=== PATIENT | female | born 1940 | race Caucasian/White ===

== ENCOUNTER 2016-03-28 09:22 | Inpatient (IN) | payer MEDICARE ==
[2016-03-28 09:22] VITALS: BP 100/47; PULSE 106; RESP 21; O2SAT 92
[~2016-03-28 09:22] MED LIST: ACET-171 PO; ATOR20TA PO; CHOL100043 PO; CHOL200025 PO; CRAN400C PO; DOCU-41 PO; DONE10TA42 PO; ESCI20TA38 PO; FLUT16SP NS; LACT1CAP44 PO; LISI-571 PO; LORA0.5T PO; LORA1TAB PO; LOV40 SUBQ; MAGN400O4 PO; OLAN10TA19 PO; OLAN5TAB PO; OMEP20CA11 PO; PSYL1PAC10 PO
--- NOTE | 2016-03-28 09:27 | ED.REPORT ---
HPI-General Illness Date of Service Mar 28, 2016 ED Provider: Dr. Brian Callejas M.D. A 75 year old female with an extensive medical history including Alzheimer's dementia with paranoia and delusions, asthma, renal insufficiency, pneumonia, and hyperlipidemia presents to the ED via EMS from [facility] with decreased level of consciousness onset two days ago. Her caretakers also report congestion in her lungs. At baseline, the patient is awake and swears frequently. Per EMS her BP was 133/77 with a pulse of 97 and a blood sugar of 133. Her O2 sat was 85% at [facility] and 88% en route. She was given DuoNeb treatment by EMS. The patient is DNR, comfort measures only. Nursing Notes Stated Complaint: DEC LOC Nursing Notes Reviewed: Yes Allergies: Coded Allergies: No Known Allergies (Unverified Allergy, Unknown, 01/01/15) Scheduled Atorvastatin (Lipitor) 20 Mg Tablet 20 MG PO MORNING Cholecalciferol (Vitamin D3) (Vitamin D3) 2,000 Unit Tablet 2,000 UNIT PO DAILY Cholecalciferol (Vitamin D3) (Vitamin D) 1,000 Unit Tablet 1,000 UNIT PO DAILY Cranberry (Cranberry) 400 Mg Capsule 400 MG PO DAILY Donepezil (Donepezil) 10 Mg Tablet 10 MG PO HS Enoxaparin (Lovenox) 40 Mg/0.4 Ml Syringe 40 MG SUBQ DAILY Escitalopram Oxalate (Escitalopram Oxalate) 20 Mg Tablet 20 MG PO DAILY Fluticasone Propionate (Fluticasone Propionate Nasal) 16 Gm [place].susp 2 SPRAY NS DAILY Lactobacillus Acidophilus (Acidophilus Lactobacillus) 1 Each Capsule 1 EACH PO DAILY Lisinopril (Lisinopril) 5 Mg Tablet 5 MG PO DAILY Lorazepam (Lorazepam) 1 Mg Tablet 1 MG PO BID Olanzapine (Olanzapine) 10 Mg Tablet 10 MG PO HS Olanzapine (Olanzapine) 5 Mg Tablet 5 MG PO MORNING Omeprazole (Omeprazole) 20 Mg Capsule.dr 20 MG PO MORNING Psyllium Seed (with Sugar) (Metamucil Packet) 1 Each Packet 1 EACH PO BID Scheduled PRN Acetaminophen (Acetaminophen) 500 Mg Tablet 1,000 MG PO BID PRN PRN For Pain Docusate Sodium (Colace) 100 Mg Capsule 100 MG PO BID PRN PRN For Constipation Lorazepam (Lorazepam) 0.5 Mg Tablet 0.5 MG PO HS PRN PRN For Insomnia Lorazepam (Lorazepam) 0.5 Mg Tablet 0.5 MG PO HS PRN PRN For Insomnia Lorazepam (Lorazepam) 1 Mg Tablet 1 MG PO BID PRN PRN For Anxiety Miscellaneous Medications Magnesium Hydroxide (Milk of Magnesia) 400 Mg/5 Ml Oral.susp 400 MG PO General Time Seen by MD: 09:27 Chief Complaint Altered mental status Hx Obtained From: EMS Unable to Obtain Hx: Patient condition, Mental status Arrived By: Ambulance Sudden in Onset?: No Onset Occurred: 2 days ago Symptom Duration: Since onset Associated with: Reports: Congestion Pertinent Negative: Relieved by nothing Context Related History: Reports Asthma, Reports Psychiatric history Recent Healthcare: No recent doctor visit Similar Sx Previous: Yes Past Medical History Past Medical History Alzheimer's dementia with paranoia and delusions Asthma Pneumonia Renal insufficiency GERD Arthritis Hyperlipidemia Past Surgical History None reported Smoking History Unknown if Ever Smoker Social History Other Social History: Lives in long term Review of Systems Unable to Obtain ROS Patient condition, Mental status Physical Exam Vital Signs Vital Signs Date Time Temp Pulse Resp B/P Pulse Ox O2 Delivery O2 Flow Rate FiO2 03/28/16 09:22 37.6 106 21 100/47 92 Room Air Initial VS: Reviewed Head / Eyes: Atraumatic, Normocephalic ENT: Conjunctiva normal, No scleral icterus Neck: Supple, Full range of motion Respiratory: Breath sounds normal, Clear to auscultation, No respiratory distress Cardiovascular: Regular rate & rhythm, Heart sounds normal Abdomen / GI: Soft, No distention Skin: Warm, Dry Alertness: Positive: Unresponsive Lower Extremity / Pelvis / MS: Full range of motion, No swelling, No edema Mental Status: Positive: Unresponsive Responds to deep painful stimulus by opening and closing of mouth with no eye grimacing or attempt to withdraw Some noise with deep abdominal palpation but no grimacing Interpretation & Diagnostics Lab Results Interpretation Result Diagram: 03/28/16 1113 03/28/16 1113 Test 03/28/16 09:45 03/28/16 11:13 Urine Color Dark yellow (YELLOW) Urine Appearance Turbid (CLEAR,HAZY) Urine pH 6.0 (5.0-8.0) Urine Specific Johnson 1.030 (1.003-1.035) Urine Protein 100mg/dL (NEG,TRACE) Urine Glucose (UA) Negativemg/dL (NEGATIVE) Urine Ketones Tracemg/dL (NEGATIVE) Urine Occult Blood Large (NEGATIVE) Urine Nitrite Negative (NEGATIVE) Urine Bilirubin Negative (NEGATIVE) Urine Urobilinogen Normalmg/dL (NORMAL) Urine Leukocyte Esterase Small (NEGATIVE) Urine RBC 0-2/hpf (0-2) Urine WBC 11-50/hpf (0-5) Urine Epithelial Cells Occasional/hpf (NONE-MOD) Urine Crystals None seen (NONE SEEN) Urine Bacteria Many/hpf (NONE-FEW) Urine Hyaline Casts Occasional/lpf (NONE) Urine Granular Casts Occasional (NONE SEEN) Urine Waxy Casts None seen (NONE SEEN) Urine Red Blood Cell Casts None seen (NONE SEEN) Urine White Blood Cell Casts None seen (NONE SEEN) Urine Mucus None seen (None Seen) Urine Trichomonas None seen (NONE SEEN) Urine Yeast None (NONE SEEN) Urinalysis Comment None Urine Culture Reflexed Indicated White Blood Count 18.2th/mm3 (3.8-10.1) Red Blood Count 4.57mil/mm3 (3.90-5.20) Hemoglobin 14.2g/dL (12.0-15.6) Hematocrit 44.1% (35.0-46.0) Mean Corpuscular Volume 96.5fL (81-100) Mean Corpuscular Hemoglobin 31.1pg (27.0-35.0) Mean Corpuscular Hemoglobin Concent 32.2% (32.0-37.0) Red Cell Distribution Width 13.5% (12.3-15.4) Platelet Count 216bil/L (150-400) Neutrophils (%) (Auto) 88.4% (40-74) Lymphocytes (%) (Auto) 7.4% (14-46) Monocytes (%) (Auto) 3.7% (4-12) Eosinophils (%) (Auto) 0% (0-5) Basophils (%) (Auto) 0.2% (0-3) Sodium Level 146mEq/L (134-144) Potassium Level 4.3mEq/L (3.5-5.2) Chloride Level 105mEq/L (97-108) Carbon Dioxide Level 24mmol/L (18-29) Blood Urea Nitrogen 28mg/dL (8-27) Creatinine 1.38mg/dL (0.57-1.00) Estimat Glomerular Filtration Rate 53mL/min (>59) Glucose Level 125mg/dL (60-99) Lactic Acid Level 2.2mmol/L (0.4-2.0) Calcium Level 9.6mg/dL (8.5-10.1) Magnesium Level 2.5mg/dL (1.6-2.6) Total Bilirubin 0.2mg/dL (0.0-1.2) Aspartate Amino Transf (AST/SGOT) 32U/L (0-50) Alanine Aminotransferase (ALT/SGPT) 22U/L (0-32) Alkaline Phosphatase 88U/L (25-165) Troponin T < 0.010ug/L (0.0-0.011) Total Protein 7.5g/dL (6.4-8.4) Albumin 4.1g/dL (3.4-5.0) ECG Interpretation ECG Interpretation: Sinus tachycardia rate 108 Time: 10:19 Interpreted by: ED physician Re-Eval/Medical Decision Source of Hx: Old records Time of Eval: 12:50 Re-Evaluation/Progress Note: Discussed with patient's brother Holland RANDALL) over the phone. Discussed lab results, diagnosis, and plan for admit. Patient's brother agrees with plan for care and all questions were addressed. Consultation : Referral / Consult Name: MiguelChris owens Consulted With: Hospitalist Call Returned at: 13:12 Color Checker: Agrees with eval, Agrees with plan, Accepts admit Counseled Regarding: Diagnosis, Lab results, Need for admission Discharge & Departure Primary Impression: Sepsis Sepsis type: sepsis due to unspecified organism Qualified Code: A41.9 - Sepsis, unspecified organism Additional Impression: UTI (urinary tract infection) Urinary tract infection type: acute pyelonephritis Qualified Code: N10 - Acute tubulo-interstitial nephritis Disposition: ADMITTED TO HOSPITAL Discharge Condition All VS Reviewed: Yes Condition: Stable Referrals: NOPCP (PCP) Padmajaibstew Attestation Portions of this note were transcribed by Analilia Antoine. I, Dr. Callejas, personally performed the history, physical exam, and medical decision-making; I reviewed and confirmed the accuracy of the information in the transcribed note. Signed by: Joy Ramirez, 03/28/2016, 14:39 Brian Callejas MD Mar 28, 2016 09:27 ANALILIA ANTOINE 13, 2017 09:42
[2016-03-28] MEDS ORDERED: 0.9% Sodium Chloride 1,000 ML IV ONE (09:33)
[2016-03-28 10:16] LABS: APPEARANCE,URINE TURBID (CLEAR,HAZY); COLOR,URINE DARK YELLOW (YELLOW)
[2016-03-28 10:21] LABS: OCCULT BLOOD,URINE LARGE (NEGATIVE)
[2016-03-28 10:23] LABS: UROBILINOGEN,URINE NORMAL (NORMAL)
--- NOTE | 2016-03-28 10:51 | DRSVH ---
PROCEDURE: X-RAY CHEST ONE VIEW, PORTABLE ([id number]) INDICATIONS: altered LOC TECHNIQUE: One view of the chest was acquired. COMPARISON: [facility], CR, XR CHEST 1VW, 01/01/2015, 20:45. FINDINGS: Surgical changes and devices: None. Lungs and pleura: No pleural effusions or pneumothorax. Lungs are clear. Mediastinum: Mediastinal contours appear normal. Heart size is normal. Bones and chest wall: No suspicious bony lesions. Overlying soft tissues appear unremarkable. IMPRESSION: No acute cardiopulmonary findings. Dictated by: Erin Chao M.D. on 03/28/2016 at 10:49 Approved by: Erin Chao M.D. on 03/28/2016 at 10:49
[2016-03-28] MEDS ORDERED: Piperacillin-Tazo 3.375 Gm Inj 3.375 GM in Dextrose 5% Minibag Plus 50 ML IV ONE (10:55)
[2016-03-28 11:24] LABS: BASOPHILS % (AUTO) 0.2 % (0-3); EOSINOPHILS % (AUTO) 0 % (0-5); MONOCYTES % (AUTO) 3.7 % (4-12); Mean Corpuscular Hemoglobin 31.1 pg (27.0-35.0); Mean Corpuscular Volume 96.5 fL (81-100); NEUTROPHILS % (AUTO) 88.4 % (40-74); Platelet Count 216 bil/L (150-400)
[2016-03-28 11:58] LABS: Magnesium 2.5 mg/dL (1.6-2.6); TROPONIN T < 0.010 ug/L (0.0-0.011)
[2016-03-28] MEDS ORDERED: 0.9% Sodium Chloride 1,000 ML IV SCH (13:14)
[2016-03-28] MEDS ORDERED: Ondansetron 2 mg/mL 2 mL Inj IVPUSH PRN ×2 (13:15→17:55)
[2016-03-28 14:23] VITALS: BP 150/83; PULSE 132; RESP 22
[2016-03-28] MEDS ORDERED: CALC600T12 PO (15:22)
[2016-03-28] MEDS ORDERED: MULT1CAP33 PO (15:22)
[2016-03-28] MEDS ORDERED: [UNRECOGNIZED DRUG - CODE] PO (15:22)
[2016-03-28] MEDS ORDERED: MIRT7.5T8 PO (15:22)
[2016-03-28] MEDS ORDERED: BISA10SU61 RC (15:23)
--- NOTE | 2016-03-28 15:44 | NUR ---
Admit nurse: Pt unable to provide any information, admit completed with medical record and information from facility. Pt lives at [facility]. Med rec completed with facility MAY. Pt has not had flu shot yet this season. Copy of POLST form in front of chart.
[2016-03-28] MEDS ORDERED: Influenza (Adult) Vaccine 0.5 mL Syringe IM ONE (16:10)
[2016-03-28 17:30] VITALS: BP 123/69; PULSE 122; RESP 17; O2SAT 95
[2016-03-28] MEDS ORDERED: Polyethylene Glycol (PEG) 17 Gm Powder PO PRN (17:55)
[2016-03-28] MEDS ORDERED: Alum-Mag Hydrox-Simeth 30 mL Suspension PO PRN (17:55)
[2016-03-28] MEDS: 0.9% Sodium Chloride 1,000 ML IV SCH (17:55)
--- NOTE | 2016-03-28 18:31 | PCM.HPMED ---
Subjective Date of Service Mar 28, 2016 Primary Provider: Admitting Physician: Chris Hassan Primary Care Physician: Rodrigo Attending Physician: Chris Hassan Chief Complaint: altered mental status History of Present Illness: History obtained entirely per ED report and prior electronic notes given that patient is completely non-verbal and minimally responsive at this point: 74 year old female with hx of HTN, Alzheimer's dementia, hypothyroidism, hyperlipidemia, and recurrent cystitis presents today with report of altered mental status. Per ED report patient presented "via EMS from [facility] with decreased level of consciousness onset two days ago. Her caretakers also report congestion in her lungs. At baseline, the patient is awake and swears frequently. Per EMS her BP was 133/77 with a pulse of 97 and a blood sugar of 133. Her O2 sat was 85% at [facility] and 88% en route. She was given DuoNeb treatment by EMS. The patient is DNR, comfort measures only." In the ED patient's workup has been suggestive of acute sepsis due to UTI. She received a dose of IV Zosyn Review of Systems: Unable to obtain 2ndry to patient minimally responsive and completely non- verbal at this time. Allergies Coded Allergies: No Known Allergies (Unverified Allergy, Unknown, 01/01/15) Home Medications Donepezil 10 Mg Tablet 10 Mg PO HS Ref 0 Atorvastatin 20 Mg Tablet (Lipitor) 20 Mg PO MORNING Ref 0 Lisinopril 5 Mg Tablet 5 Mg PO DAILY #30 TABLET Ref 0 Acetaminophen 500 Mg Tablet 1,000 Mg PO BID PRN Lorazepam 1 Mg Tablet 1 Mg PO BID Ref 0 Mirtazapine 7.5 Mg Tablet 7.5 Mg PO HS Ref 0 Olanzapine 5 Mg Tablet 5 Mg PO BID Ref 0 Calcium Carbonate 600 Mg Tablet 500 Mg PO TID Fluticasone Propionate 16 Gm [place].Susp 2 [place] NS DAILY #16 GM Ref 0 Bisacodyl 10 Mg Supp.Rect 10 Mg RC DAILY PRN 30 Days Ref 0 Lactobacillus Acidophilus 1 Each Capsule 1 Each PO DAILY Magnesium Hydroxide 400 Mg/5 Ml Oral.Susp 400 Mg PO Psyllium Seed (with Sugar) 1 Each Packet (Metamucil Packet) 1 Each PO BID Cholecalciferol (Vitamin D3) 2,000 Unit Tablet 2,000 Unit PO DAILY Multivitamin 1 Each Capsule 1 Each PO DAILY Cola Syrup 118 Ml Syrup 15 Ml PO BID Cranberry 400 Mg Capsule 400 Mg PO DAILY PMH Alzheimer's Dementia Anxiety Hypothyroidism (acquired) Recurrent Cystitis Hyperlipidemia Urinary incontinence Family History unable to obtain 2ndry to altered mental status Social History Hx Alcohol Use: No Hx Substance Use: No Smoking Status: Unknown if Ever Smoker Exam Vital Signs Vital Sign - Last Date Time Temp Pulse Resp B/P Pulse Ox O2 Delivery O2 Flow Rate FiO2 03/28/16 14:23 39.4 132 22 150/83 OxyMask 4.00 03/28/16 09:22 92 Exam no response to sternal rub. non-verbal. pupils seem pinpoint and fixed. no significant lymphadenopathy noted. neuro exam deferred 2ndry to altered mental status as noted Head: Normal Eyes: Scleral Anicteric Nose: Dry membranes Mouth: Mucous Membranes Dry Chest & Lungs: Chest Wall Normal, Clear to auscultation & percussion Cardiovascular: Regular Rate/Rhythm Abdomen: Non-distended, Normoactive bowel tones, Soft Extremities: No cyanosis/clubbing/edma bilat Lab and Diagnostics Result Diagram: 03/28/16 1113 03/28/16 1113 X-Rays, CTs and MRIs Date of Service: 03/28/16 09 PROCEDURE: X-RAY CHEST ONE VIEW, PORTABLE ([id number]) IMPRESSION: No acute cardiopulmonary findings. Dictated by: Erin Chao M.D. on 03/28/2016 at 10:49 Approved by: Erin Chao M.D. on 03/28/2016 at 10:49 Assessment & Plan 74 year old female with hx of HTN, Alzheimer's dementia, hypothyroidism, hyperlipidemia, and recurrent cystitis presents today with report of altered mental status. # Acute severe sepsis (fever, tachycardia, leukocytosis, altered level of consciousness, DELORES, elevated lactic acid) due to acute UTI, present on admission. ongoing. - c/w IV Zosyn started in ED - f/u pending cultures - f/u serial Lactic acid until back to normal leve - c/w IV fluid resuscitation - c/w supportive care # Acute decreased level of consciousness likely 2ndry to underlying sepsis and infection noted above - treatment as noted - if altered mental status persist despite improving labs then consider further imaging of head - for now given goals of care will not pursue any further imaging of the head as it is unlikely to change plan of care # History of Alzheimer's Dementia. advanced. - resume home meds once mental status improve and able to tolerate PO # ? History of Hypothyroidism per prior notes - thyroid medication not seen on patient's list of meds - add TSH to labs today and f/u # Hypertension. chronic. ongoing - Hold BP meds until more awake and acute sepsis resolve - for now continue with IV NS. # Goals of care - I discussed patient's case with her brother/DPOA (Holland Kameron, Tel: ). He verifies ED's report that patient is DNR/DNI and comfort care although says wants treatment of underlying infection and sepsis including serial Lactic acid and repeat labs at this time. Should patient's clinical course continue to deteriorate despite above noted treatment he wants to be notified at which time he will consider possible hospice and comfort care only protocol. Expected length of hospital stay is greater than 2 midnights. GI Prophylaxis: Proton Pump Inhibitor VTE Prophylaxis: Sub-Q Heparin (Unfractionated) Resuscitation Status: DNR/DNI:Do Not Resuscitate/Intubate Time spent 50 min Chris Hassan Mar 28, 2016 18:31
[2016-03-28] MEDS: Acetaminophen IV 1,000 MG in IV Premix 1 EACH IV PRN (19:03)
--- NOTE | 2016-03-28 19:10 | NUR ---
Arrival to Floor, Fever Patient arrived to the floor from the ED unresponsive to verbal cues. Patient occasionally will respond to touch with vocalization or movement. Patient on four liters of oxygen via oxymask. Ordered IV fluids hung. Small reddened area noted on backside, blanchable. Patient incontinent of urine. Turning Q2 hours. Patient found to be febrile upon arrival to floor. Orders for IV Tylenol received, hung. Care is ongoing.
[2016-03-28 20:36] VITALS: BP 83/43; PULSE 98; RESP 26; O2SAT 94
[2016-03-28 20:37] VITALS: BP 83/50
[2016-03-28] MEDS: Piperacillin-Tazo 3.375 Gm Inj 3.375 GM in Dextrose 5% Minibag Plus 50 ML IV SCH (20:44)
[2016-03-28 21:30] VITALS: BP 117/74; PULSE 102; RESP 24; O2SAT 92
--- NOTE | 2016-03-28 22:28 | NUR ---
BP/respirations Pt BP was 84/43, respirations were 28per min and labored. lungs coarse and congestion sounding. pt clammy and remains unresponsive to verbal stimuli, minimally responsive to touch. notified. Hospitalist came and saw pt and assessed. she ordered a vaughn cath to be placed. vaughn in place and draining to gravity. no other changes in orders at this time. upon reassessment pt BP had gone up to 117/74. will continue to monitor. Addendum: 03/28/16 at 2257 by DEENA DUMONT RN respirations have also slowed down and pt no longer appears labored. resting comfortably at this time.
[2016-03-29] VITALS (9 sets, daily range): BP systolic 80–156; BP diastolic 48–79; PULSE 80–95; RESP 18–24; O2SAT 92–99
[2016-03-29] MEDS: Heparin 5,000 Unit/mL Inj SUBQ SCH ×3 (00:43→16:52)
[2016-03-29] MEDS: 0.9% Sodium Chloride 1,000 ML IV SCH ×3 (00:50→22:10)
--- NOTE | 2016-03-29 01:12 | PCM.PNMED ---
Subjective Date of Service Mar 29, 2016 Subjective cross cover tachypnea/BP 80s/40s were self limiting purulent urine output / DNR DNI w/ limited interventions --vaughn Exam Vital Signs Vital Sign - Last Date Time Temp Pulse Resp B/P Pulse Ox O2 Delivery O2 Flow Rate FiO2 03/28/16 21:30 37.7 102 24 117/74 92 OxyMask 4.00 Intake and Output 03/28/16 03/28/16 03/29/16 Cumulative From/Thru 15:00 23:00 07:00 03/28/16 09:22 - 03/28/16 19:24 Intake Total 1200 ml 0 ml 1200 ml Balance 1200 ml 0 ml 1200 ml Intake Oral 0 ml 0 ml IV Total 1200 ml 1200 ml # Voids 2 2 Lab and Diagnostics Result Diagram: 03/28/16 1113 03/28/16 1113 X-Rays, CTs and MRIs Date of Service: 03/28/16 0933 PROCEDURE: X-RAY CHEST ONE VIEW, PORTABLE ([id number]) IMPRESSION: No acute cardiopulmonary findings. Dictated by: Erin Chao M.D. on 03/28/2016 at 10:49 Approved by: Erin Chao M.D. on 03/28/2016 at 10:49 Assessment & Plan 74 year old female with hx of HTN, Alzheimer's dementia, hypothyroidism, hyperlipidemia, and recurrent cystitis presents today with report of altered mental status. # Acute severe sepsis (fever, tachycardia, leukocytosis, altered level of consciousness, DELORES, elevated lactic acid) due to acute UTI, present on admission. ongoing. - c/w IV Zosyn started in ED - f/u pending cultures - f/u serial Lactic acid until back to normal leve - c/w IV fluid resuscitation - c/w supportive care # Acute decreased level of consciousness likely 2ndry to underlying sepsis and infection noted above - treatment as noted - if altered mental status persist despite improving labs then consider further imaging of head - for now given goals of care will not pursue any further imaging of the head as it is unlikely to change plan of care # History of Alzheimer's Dementia. advanced. - resume home meds once mental status improve and able to tolerate PO # ? History of Hypothyroidism per prior notes - thyroid medication not seen on patient's list of meds - add TSH to labs today and f/u # Hypertension. chronic. ongoing - Hold BP meds until more awake and acute sepsis resolve - for now continue with IV NS. # Goals of care - I discussed patient's case with her brother/DPOA (Holland Melo, Tel: ). He verifies ED's report that patient is DNR/DNI and comfort care although says wants treatment of underlying infection and sepsis including serial Lactic acid and repeat labs at this time. Should patient's clinical course continue to deteriorate despite above noted treatment he wants to be notified at which time he will consider possible hospice and comfort care only protocol. Expected length of hospital stay is greater than 2 midnights. GI Prophylaxis: Proton Pump Inhibitor VTE Prophylaxis: Sub-Q Heparin (Unfractionated) VTE Mechanical Devices: Intermittant Pneumatic CD Resuscitation Status: DNR/DNI:Do Not Resuscitate/Intubate Pa Marinelli MD Mar 29, 2016 01:12
[2016-03-29] MEDS: Acetaminophen IV 1,000 MG in IV Premix 1 EACH IV PRN ×2 (03:26→14:33)
--- NOTE | 2016-03-29 05:28 | NUR ---
LOC pt has been unresponsive to verbal stimuli for most of the shift, she does respond with moaning and moving her arms legs during care. However a couple of times she has appeared to wake up. eyes were open, pupils equal round and reactive to light. and when nurse said "daniel davey" she said "hello" back. she became agitated once this shift moaning and groaning and her muscles were rigid. she was given 1 mg of morphine and appeared comfortable again afterwards. she has ran a low grade fever off and on this shift and at times appeared uncomfortable and shivering. IV tylenol has effectively reduced her fever and made her more comfortable. 02 sats are currently 94% on 3L via oxy mask. will continue to monitor.
[2016-03-29 07:32] LABS: BASOPHILS % (AUTO) 0.1 % (0-3); EOSINOPHILS % (AUTO) 0 % (0-5); Mean Corpuscular Hemoglobin 30.8 pg (27.0-35.0); Mean Corpuscular Volume 96.5 fL (81-100); NEUTROPHILS % (AUTO) 80.7 % (40-74); Platelet Count 172 bil/L (150-400)
[2016-03-29 07:50] LABS: Magnesium 2.3 mg/dL (1.6-2.6)
[2016-03-29] MEDS: Pantoprazole 4 mg/mL 10 mL Inj IVPUSH SCH (09:13)
[2016-03-29] MEDS: Piperacillin-Tazo 3.375 Gm Inj 3.375 GM in Dextrose 5% Minibag Plus 50 ML IV SCH ×2 (09:13→20:59)
--- NOTE | 2016-03-29 10:45 | NUR ---
Evaluation completed. Please go to "Notes" then click on "Assessments and Notes" (bottom left corner of screen). Then select appropriate discipline tab on top of screen.
[2016-03-29] MEDS ORDERED: 0.9% Sodium Chloride 250 ML IV PRN (13:25)
[2016-03-29] MEDS ORDERED: Influenza (Adult) Vaccine 0.5 mL Syringe IM ONE (13:57)
--- NOTE | 2016-03-29 14:53 | NUR ---
Social Work: Initial Assessment D: Per EMR review, pt is a 75 year old female admitted for Sepsis, UTI. Pt is [employer]. PCP is not listed. NOK and DPOA is Holland Melo, Brother, . Advanced directives on file. Readmit score is low, 2/. BAR TURNER spoke with RN, Carlie, at [facility]. Pt is total assistance for all ADLs. Pt is wheelchair bound and uses a sheila lift for transfers. Pt has baseline dementia and uses derogatory language towards staff on a regular basis. Pt will require a bedside assessment from [facility] staff prior to acceptance back. They do not have staff available to complete this assessment over the weekend. Pt's DPOA has stated that he would like pt to be treated for her UTI however if pt does not improve of gets worse, he would like to consider comfort measures. A: Pt who is 2 person total assistance and uses a sheila for transfers. P: Anticipate pt to discharge back to [facility] pending bedside assessment; BAR TURNER to continue to follow. LALI Lan Addendum: 03/29/16 at 1503 by VIRIDIANA URIARTE Amended: Links added.
--- NOTE | 2016-03-29 17:42 | NUR ---
MENTATION/ACTIVITY Patient is responsive to voice. Mumbles. Confused. Via FELDT scale patient's pain level is 5-7. IV APAP and IV Morphine administered, which was helpful. No emesis noted. She continues to be on O2 at 2-3 LPM via an oxymask. SBP's have been in the 120-130's most of this shift. Turned and repositioned Q 2 hrs. Sutter alarm is on. *Verified with her DPOA-Holland: Patient will have the flu vac administered today.
--- NOTE | 2016-03-29 19:13 | PCM.PNMED ---
Subjective Date of Service Mar 29, 2016 Subjective SBP 120s, and turning by herself w/ RN assist today Exam Vital Signs Vital Sign - Last Date Time Temp Pulse Resp B/P Pulse Ox O2 Delivery O2 Flow Rate FiO2 03/29/16 16:29 87 123/76 03/29/16 14:45 37.2 20 OxyMask 3.00 03/29/16 09:09 92 Intake and Output 03/28/16 03/28/16 03/29/16 Cumulative From/Thru 15:00 23:00 07:00 03/28/16 09:22 - 03/29/16 06:06 Intake Total 1200 ml 0 ml 1695 ml 2895 ml Output Total 200 ml 200 ml Balance 1200 ml 0 ml 1495 ml 2695 ml Intake Oral 0 ml 0 ml 0 ml IV Total 1200 ml 1695 ml 2895 ml Output Urine Total 200 ml 200 ml # Voids 2 2 Exam oximask NAD asleep loose cough wheeze right, CTAleft soft nt nd + BS trace block edema vaughn clear yellow urine IVF 100/hr + BM today Lab and Diagnostics Result Diagram: 03/29/16 0653 03/29/16 0653 X-Rays, CTs and MRIs Date of Service: 03/28/16 0933 PROCEDURE: X-RAY CHEST ONE VIEW, PORTABLE ([id number]) IMPRESSION: No acute cardiopulmonary findings. Dictated by: Erin Chao M.D. on 03/28/2016 at 10:49 Approved by: Erin Chao M.D. on 03/28/2016 at 10:49 Assessment & Plan 74 year old female with hx of HTN, Alzheimer's dementia, hypothyroidism, hyperlipidemia, treated as sepsis due to recurrent cystitis presented with somnolence. Finally BP stabilizing and turning for RN today 03/29/2016. # IMPROVING Acute severe sepsis (fever, tachycardia, leukocytosis, altered level of consciousness, DELORES, elevated lactic acid) due to acute gram neg rods purulent UTI, present on admission. --resolving leukocytosis - c/w IV Zosyn started in ED - f/u pending cultures - c/w IV fluid resuscitation # IMPROVING Acute decreased level of consciousness likely 2ndry to underlying sepsis, improving - oximask, npo, decrease IVF 50cc/hr IMPROVING DELORES --monitor Cr and UOP --vaughn had been placed # History of Alzheimer's Dementia. advanced. - resume home meds once mental status improve and able to tolerate PO # ? History of Hypothyroidism per prior notes - thyroid medication not seen on patient's list of meds - add TSH to labs today and f/u # Hypertension. chronic. ongoing - Hold BP meds until more awake and acute sepsis resolve # Goals of care - admitting hospitalist spoke w/ brother/DPOA (Holland Melo, ) . He verfied DNR/DNI/comfort care but wanted treatment of underlying infection. Should patient's clinical course deteriorate, he wants to be notified at which time he will consider possible hospice and comfort care only protocol. Expected length of hospital stay is greater than 2 midnights. GI Prophylaxis: Proton Pump Inhibitor VTE Prophylaxis: Sub-Q Heparin (Unfractionated) VTE Mechanical Devices: Intermittant Pneumatic CD Resuscitation Status: DNR/DNI:Do Not Resuscitate/Intubate Pa Marinelli MD Mar 29, 2016 19:13
[2016-03-29] MEDS: Albuterol-Ipratropium 3 mL Inhalation Solution NEB SCH (20:24)
[2016-03-30] MEDS: Heparin 5,000 Unit/mL Inj SUBQ SCH ×3 (00:08→17:20)
--- NOTE | 2016-03-30 05:09 | NUR ---
mentation pt has been responding to voice. sometimes she answers questions appropriately but mostly she is confused, or mumbling. duoneb was administered last night which seemed to help clear pt's congestion for a short time. she is still on 3L of 02. q2 turns being done but pt also moves herself around in bed frequently. VSS and afebrile. care continues.
[2016-03-30 05:15] VITALS: BP 133/82; PULSE 91; RESP 16; O2SAT 97
[2016-03-30 07:55] LABS: Mean Corpuscular Hemoglobin 31.3 pg (27.0-35.0); Mean Corpuscular Volume 95.7 fL (81-100)
[2016-03-30] MEDS: Pantoprazole 4 mg/mL 10 mL Inj IVPUSH SCH (07:59)
[2016-03-30 08:01] VITALS: BP 155/84; PULSE 89; RESP 18; O2SAT 94
[2016-03-30] MEDS: Piperacillin-Tazo 3.375 Gm Inj 3.375 GM in Dextrose 5% Minibag Plus 50 ML IV SCH (08:01)
[2016-03-30] MEDS: Albuterol-Ipratropium 3 mL Inhalation Solution NEB SCH ×2 (08:53→20:03)
[2016-03-30 08:56] VITALS: PULSE 85; RESP 14; O2SAT 94
--- NOTE | 2016-03-30 09:09 | PCM.PNMED ---
Subjective Date of Service Mar 30, 2016 Subjective Patient currently is in bed and is being cleaned up by nurse. Nurse notes that patient is more alert today. She did have swallow evaluation done yesterday and failed. Hence she is still on nothing by mouth status. Exam Vital Signs Vital Sign - Last Date Time Temp Pulse Resp B/P Pulse Ox O2 Delivery O2 Flow Rate FiO2 03/30/16 08:01 36.0 89 18 155/84 94 Room Air 03/30/16 05:15 3.00 Intake and Output 03/29/16 03/29/16 03/30/16 Cumulative From/Thru 15:00 23:00 07:00 03/28/16 09:22 - 03/29/16 17:48 Intake Total 1136 ml 4031 ml Output Total 450 ml 650 ml Balance 686 ml 3381 ml Intake Oral 0 ml 0 ml IV Total 1136 ml 4031 ml Output Urine Total 450 ml 650 ml # Voids 2 Exam Head: Normocephalic atraumatic Chest: Clear to auscultation with some scant rhonchi auscultated in the upper airways Cor: Regular rate and rhythm S1-S2 Abdomen: Soft nontender bowel sounds present Extremities: No pedal edema Neuro: Patient is awake and alert and oriented 0 does not really follow commands. But does verbalize IVs and Medications Medications Reviewed: Medications were reviewed in detail Lab and Diagnostics Laboratory Tests 72 Hours Test 03/28/16 09:45 03/28/16 11:13 03/28/16 18:20 03/28/16 20:20 Urine Color Dark yellow (YELLOW) Urine Appearance Turbid (CLEAR,HAZY) Urine pH 6.0 (5.0-8.0) Urine Specific [place] 1.030 (1.003-1.035) Urine Protein 100mg/dL (NEG,TRACE) Urine Glucose (UA) Negativemg/dL (NEGATIVE) Urine Ketones Tracemg/dL (NEGATIVE) Urine Occult Blood Large (NEGATIVE) Urine Nitrite Negative (NEGATIVE) Urine Bilirubin Negative (NEGATIVE) Urine Urobilinogen Normalmg/dL (NORMAL) Urine Leukocyte Esterase Small (NEGATIVE) Urine RBC 0-2/hpf (0-2) Urine WBC 11-50/hpf (0-5) Urine Epithelial Cells Occasional/hpf (NONE-MOD) Urine Crystals None seen (NONE SEEN) Urine Bacteria Many/hpf (NONE-FEW) Urine Hyaline Casts Occasional/lpf (NONE) Urine Granular Casts Occasional (NONE SEEN) Urine Waxy Casts None seen (NONE SEEN) Urine Red Blood Cell Casts None seen (NONE SEEN) Urine White Blood Cell Casts None seen (NONE SEEN) Urine Mucus None seen (None Seen) Urine Trichomonas None seen (NONE SEEN) Urine Yeast None (NONE SEEN) Urinalysis Comment None Urine Culture Reflexed Indicated White Blood Count 18.2th/mm3 (3.8-10.1) Red Blood Count 4.57mil/mm3 (3.90-5.20) Hemoglobin 14.2g/dL (12.0-15.6) Hematocrit 44.1% (35.0-46.0) Mean Corpuscular Volume 96.5fL (81-100) Mean Corpuscular Hemoglobin 31.1pg (27.0-35.0) Mean Corpuscular Hemoglobin Concent 32.2% (32.0-37.0) Red Cell Distribution Width 13.5% (12.3-15.4) Platelet Count 216bil/L (150-400) Neutrophils (%) (Auto) 88.4% (40-74) Lymphocytes (%) (Auto) 7.4% (14-46) Monocytes (%) (Auto) 3.7% (4-12) Eosinophils (%) (Auto) 0% (0-5) Basophils (%) (Auto) 0.2% (0-3) Sodium Level 146mEq/L (134-144) Potassium Level 4.3mEq/L (3.5-5.2) Chloride Level 105mEq/L (97-108) Carbon Dioxide Level 24mmol/L (18-29) Blood Urea Nitrogen 28mg/dL (8-27) Creatinine 1.38mg/dL (0.57-1.00) Estimat Glomerular Filtration Rate 53mL/min (>59) Glucose Level 125mg/dL (60-99) Lactic Acid Level 2.2mmol/L (0.4-2.0) 0.9mmol/L (0.4-2.0) 1.0mmol/L (0.4-2.0) Calcium Level 9.6mg/dL (8.5-10.1) Magnesium Level 2.5mg/dL (1.6-2.6) Total Bilirubin 0.2mg/dL (0.0-1.2) Aspartate Amino Transf (AST/SGOT) 32U/L (0-50) Alanine Aminotransferase (ALT/SGPT) 22U/L (0-32) Alkaline Phosphatase 88U/L (25-165) Troponin T < 0.010ug/L (0.0-0.011) Total Protein 7.5g/dL (6.4-8.4) Albumin 4.1g/dL (3.4-5.0) Test 03/28/16 22:45 03/29/16 06:53 03/30/16 07:05 Lactic Acid Level 1.1mmol/L (0.4-2.0) White Blood Count 14.6th/mm3 (3.8-10.1) 6.8th/mm3 (3.8-10.1) Red Blood Count 3.73mil/mm3 (3.90-5.20) 3.96mil/mm3 (3.90-5.20) Hemoglobin 11.5g/dL (12.0-15.6) 12.4g/dL (12.0-15.6) Hematocrit 36.0% (35.0-46.0) 37.9% (35.0-46.0) Mean Corpuscular Volume 96.5fL (81-100) 95.7fL (81-100) Mean Corpuscular Hemoglobin 30.8pg (27.0-35.0) 31.3pg (27.0-35.0) Mean Corpuscular Hemoglobin Concent 31.9% (32.0-37.0) 32.7% (32.0-37.0) Red Cell Distribution Width 13.5% (12.3-15.4) 13.2% (12.3-15.4) Platelet Count 172bil/L (150-400) 179bil/L (150-400) Neutrophils (%) (Auto) 80.7% (40-74) Lymphocytes (%) (Auto) 12.9% (14-46) Monocytes (%) (Auto) 6.0% (4-12) Eosinophils (%) (Auto) 0% (0-5) Basophils (%) (Auto) 0.1% (0-3) Sodium Level 145mEq/L (134-144) 143mEq/L (134-144) Potassium Level 4.1mEq/L (3.5-5.2) 4.0mEq/L (3.5-5.2) Chloride Level 111mEq/L (97-108) 110mEq/L (97-108) Carbon Dioxide Level 21mmol/L (18-29) 22mmol/L (18-29) Blood Urea Nitrogen 27mg/dL (8-27) 17mg/dL (8-27) Creatinine 1.29mg/dL (0.57-1.00) 0.90mg/dL (0.57-1.00) Estimat Glomerular Filtration Rate 58mL/min (>59) 87mL/min (>59) Glucose Level 110mg/dL (60-99) 85mg/dL (60-99) Calcium Level 8.4mg/dL (8.5-10.1) 8.5mg/dL (8.5-10.1) Magnesium Level 2.3mg/dL (1.6-2.6) Albumin 2.7g/dL (3.4-5.0) Prealbumin 15mg/dL (20-40) Result Diagram: 03/30/1670403/30/16704 Microbiology RUN DATE: 03/30/16 [facility] LIVE PAGE 1 RUN TIME: 735 Specimen Inquiry PHYSICIAN Name: ABHAY SCHWARZ Age/Sex: 75/F Attend Dr: Chris Hassan Acct: [id number] Unit: [id number] Status: ADM IN [place] [facility] [place]1 Re03/28/16 Disch: Specimen: [id number] Collected: 03/28/16 Status: OLMAN Larkin#: [id number] Received: 03/28/16 Source: URINE CC Sp Desc : ALEKSEY Lipscomb Dr: Brian Callejas MD Ordered: URINE CULT Procedure Result Verified Site Microbiology CRICKET CULT URINE Final 03/30/16 Organism 1 PROTEUS MIRABILIS U COLONY COUNT/QUANTITY >100,000 CFU/ml Organism 2 MIXED UROGENITAL JAVI U COLONY COUNT/QUANTITY >100,000 CFU/ml Mixed urogenital javi also PROTEUS MIRABILIS Cefazolin-predicts results for the oral agents, cefaclor,cefdinir, cefpodoximen, cefprozil, cefuroximne axetil, cephalexin and loracarbed when used for therapy of uncomplicated UTI's due to E. coli, K. pneumoniae, and Proteus mirabilis. Cefpodoxime, cefdinir and cefuroxime axetil may be tested individually because some isolates may be susceptible to these agents while testing resistant to cefazolin. (CLSI N281-J32 pg 53) 1. PROTEUS MIRABILIS M.I.C Interp --------- ------ * AMPICILLIN I * CEFAZOLIN (CEPHALOSPORIN) UTI 4 S * CEFEPIME <=1 S * CEFTRIAXONE <=1 S * CEFUROXIME SODIUM <=1 S * CIPROFLOXACIN <=0.25 S * ERTAPENEM <=0.5 S * GENTAMICIN <=1 S * LEVOFLOXACIN <=0.12 S * NITROFURANTOIN 128 R * TETRACYCLINE >=16 R * TOBRAMYCIN <=1 S * TRIMETHOPRIM/SULFAMETHOXAZOLE <=20 S X-Rays, CTs and MRIs Date of Service: 03/28/16 0933 PROCEDURE: X-RAY CHEST ONE VIEW, PORTABLE ([id number]) IMPRESSION: No acute cardiopulmonary findings. Dictated by: Erin Chao M.D. on 03/28/2016 at 10:49 Approved by: Erin Chao M.D. on 03/28/2016 at 10:49 Assessment & Plan 74 year old female with hx of HTN, Alzheimer's dementia, hypothyroidism, hyperlipidemia, treated as sepsis due to recurrent cystitis presented with somnolence. Finally BP stabilizing and turning for RN today 03/29/2016. # IMPROVING Acute severe sepsis (fever, tachycardia, leukocytosis, altered level of consciousness, DELORES, elevated lactic acid) due to acute gram neg rods purulent UTI, present on admission. --resolving leukocytosis - c/w IV Zosyn started in ED - f/u pending cultures - c/w IV fluid resuscitation Urine cultures are back growing a Proteus mirabilis which is not sensitive to ampicillin but is sensitive to Rocephin. Hence we will switch to Rocephin IV and DC Zosyn # IMPROVING Acute decreased level of consciousness likely 2ndry to underlying sepsis, improving - oximask, npo, decrease IVF 50cc/hr -Patient more alert today per RN -Not requiring supplemental O2 at this time # IMPROVING DELORES --monitor Cr and UOP --vaughn had been placed -Kidney function is doing better today, continue to monitor -Continue with IV fluids # History of Alzheimer's Dementia. advanced. - resume home meds once mental status improve and able to tolerate PO # ? History of Hypothyroidism per prior notes - thyroid medication not seen on patient's list of meds - add TSH to labs today and f/u -Thyroid labs are pending still today # Hypertension. chronic. ongoing - Hold BP meds until more awake and acute sepsis resolve # Goals of care - admitting hospitalist spoke w/ brother/DPOA (Holland Melo, ) . He verfied DNR/DNI/comfort care but wanted treatment of underlying infection. Should patient's clinical course deteriorate, he wants to be notified at which time he will consider possible hospice and comfort care only protocol. Expected length of hospital stay is greater than 2 midnights. GI Prophylaxis: Proton Pump Inhibitor VTE Prophylaxis: Sub-Q Heparin (Unfractionated) VTE Mechanical Devices: Intermittant Pneumatic CD Resuscitation Status: DNR/DNI:Do Not Resuscitate/Intubate Time spent 30 minutes Ramya Carr MD Mar 30, 2016 09:09
--- NOTE | 2016-03-30 09:10 | NUR ---
DOUG Signed Verbal Consent from ELIOT
[2016-03-30] MEDS: cefTRIAXone Inj 2,000 MG in IV Premix 1 EACH IV SCH (14:37)
[2016-03-30] MEDS ORDERED: Acetaminophen IV 1,000 MG in IV Premix 1 EACH IV PRN (14:50)
[2016-03-30 14:52] VITALS: BP 137/74; PULSE 95; RESP 18; O2SAT 93
[2016-03-30] MEDS: Dextrose 5% 0.45% NaCl 1,000 ML IV SCH (18:30)
[2016-03-30 20:05] VITALS: PULSE 78; RESP 18; O2SAT 85
[2016-03-30 20:50] VITALS: BP 106/69; PULSE 112; RESP 20; O2SAT 96
--- NOTE | 2016-03-30 22:55 | NUR ---
HR/ paged. This evening patients heart rate has been fluctuating from 80's to high 140's. Pt is not on tele. Night hospitalist notified and states no new orders at this time. Patient is on 3 L O2 via oxy mask to maintain O2 Sats >92%. HOMICIDE SQUAD CAPTAIN has been applied to monitor both oxygen levels, and Heart rate. Will continue to monitor, and continue Q2 turns. Addendum: 03/31/16 at 0422 by KINSEY SNOW RN As the evening has progressed, Pts heart rate appears to be maintaining in the 80's. Will continue to monitor.
[2016-03-31] VITALS (8 sets, daily range): BP systolic 108–158; BP diastolic 77–91; PULSE 83–97; RESP 16–22; O2SAT 97–99
[2016-03-31] MEDS: Heparin 5,000 Unit/mL Inj SUBQ SCH ×3 (00:27→16:59)
[2016-03-31] MEDS: Pantoprazole 4 mg/mL 10 mL Inj IVPUSH SCH (07:25)
[2016-03-31] MEDS: Dextrose 5% 0.45% NaCl 1,000 ML IV SCH (08:32)
[2016-03-31] MEDS: cefTRIAXone Inj 2,000 MG in IV Premix 1 EACH IV SCH (08:32)
[2016-03-31] MEDS: Albuterol-Ipratropium 3 mL Inhalation Solution NEB SCH ×2 (08:42→21:40)
[2016-03-31 09:08] LABS: Free Thyroxine Index 1.7 (1.2-4.9); Thyroxine (T4) 5.7 ug/dL (4.5-12.0)
--- NOTE | 2016-03-31 10:25 | NUR ---
03/31/16 Wound Care [facility] Patient assessed for pressure ulcer protocol. No areas of pressure identified. Patient with blanchable redness to nose and chin from O2 mask. Applied duoderm to prevent further pressure. Nsg to monitor and change duoderm as needed. Red rash noted to perineum. Nursing present during assessment and notified. Applied calmoseptine to red rash. Nursing to monitor redness and request nystatin if no improvement with calmoseptine. Heels floated, however patient very restless and mobile in bed. Likely will not be able to keep heels floated due to constant mobility in bed. Wound care to follow up if needed.
--- NOTE | 2016-03-31 10:40 | NUR ---
Palliative Care Palliative Care received verbal order from Dr Murdock 03/31/16 to assist with goals of care. Patient is a 75 year old woman with hx of HTN, Alzheimer's dementia, hypothyroidism and hyperlipidemia. She was admitted 03/28/16 for care off UTI and sepsis. Holland Melo (brother) [phone] Palliative Care to follow. Daisy Cesar
--- NOTE | 2016-03-31 11:29 | NUR ---
Phone call from pt's brother Pt's brother, Real, called this a.m. asking about pt's condition. Told him pt's dementia was obvious and that most of her speech was incoherent. Also told him that pt has nasal congestion, but her lungs are mostly clear. During rounds this a.m., palliative care suggested meeting with pt's family, as pt has not had any food for 3 days (failed swallow evaluation). Hospitalist and palliative care to see pt. Care continues.
--- NOTE | 2016-03-31 11:37 | PCM.PNMED ---
Subjective Date of Service Mar 31, 2016 Subjective Patient with eyes open, confused at baseline, noted failed a swallow evaluation - out of care to discuss goals of care including nutritional options with family. Appreciate assistance Exam Vital Signs Vital Sign - Last Date Time Temp Pulse Resp B/P Pulse Ox O2 Delivery O2 Flow Rate FiO2 03/31/16 10:34 Supplement Oxygen 03/31/16 10:30 89 98 3.00 03/31/16 08:44 18 03/31/16 05:40 36.8 130/77 Intake and Output 03/30/16 03/30/16 03/31/16 Cumulative From/Thru 15:00 23:00 07:00 03/28/16 09:22 - 03/31/16 06:37 Intake Total 823 ml 617 ml 894 ml 6365 ml Output Total 700 ml 850 ml 200 ml 2400 ml Balance 123 ml -233 ml 694 ml 3965 ml Intake Oral 0 ml 0 ml 0 ml 0 ml IV Total 823 ml 617 ml 894 ml 6365 ml Output Urine Total 700 ml 850 ml 200 ml 2400 ml # Voids 2 # Bowel Movements 0 0 0 Exam Head: Normocephalic atraumatic Chest: Clear to auscultation with some scant rhonchi auscultated in the upper airways Cor: Regular rate and rhythm S1-S2 Abdomen: Soft nontender bowel sounds present Extremities: No pedal edema Neuro: Patient is awake and alert and oriented 0 does not really follow commands. But does verbalize IVs and Medications Medications Reviewed: Medications were reviewed in detail Lab and Diagnostics Result Diagram: 03/30/1670403/30/16704 Microbiology RUN DATE: 03/30/16 [facility] LAB LIVE PAGE 1 RUN TIME: 735 Specimen Inquiry PHYSICIAN Name: ABHAY SCHWARZ Age/Sex: 75/F Attend Dr: Chris Hassan Acct: [id number] Unit: [id number] Status: ADM IN Location: [facility] [place] 1030-1 Re03/28/16 Disch: Specimen: [id number] Collected: 03/28/16 Status: COMP Req#: [id number] Received: 03/28/16 Source: URINE CC Sp Desc : ALEKSEY Lipscomb Dr: Brian Callejas MD Ordered: URINE CULT Procedure Result Verified Site Microbiology CRICKET CULT URINE Final 03/30/16-735 Organism 1 PROTEUS MIRABILIS U COLONY COUNT/QUANTITY >100,000 CFU/ml Organism 2 MIXED UROGENITAL JAVI U COLONY COUNT/QUANTITY >100,000 CFU/ml Mixed urogenital javi also PROTEUS MIRABILIS Cefazolin-predicts results for the oral agents, cefaclor,cefdinir, cefpodoximen, cefprozil, cefuroximne axetil, cephalexin and loracarbed when used for therapy of uncomplicated UTI's due to E. coli, K. pneumoniae, and Proteus mirabilis. Cefpodoxime, cefdinir and cefuroxime axetil may be tested individually because some isolates may be susceptible to these agents while testing resistant to cefazolin. (CLSI S014-S03 pg 53) 1. PROTEUS MIRABILIS M.I.C Interp --------- ------ * AMPICILLIN I * CEFAZOLIN (CEPHALOSPORIN) UTI 4 S * CEFEPIME <=1 S * CEFTRIAXONE <=1 S * CEFUROXIME SODIUM <=1 S * CIPROFLOXACIN <=0.25 S * ERTAPENEM <=0.5 S * GENTAMICIN <=1 S * LEVOFLOXACIN <=0.12 S * NITROFURANTOIN 128 R * TETRACYCLINE >=16 R * TOBRAMYCIN <=1 S * TRIMETHOPRIM/SULFAMETHOXAZOLE <=20 S X-Rays, CTs and MRIs Date of Service: 03/28/16 0933 PROCEDURE: X-RAY CHEST ONE VIEW, PORTABLE ([id number]) IMPRESSION: No acute cardiopulmonary findings. Dictated by: Erin Chao M.D. on 03/28/2016 at 10:49 Approved by: Erin Chao M.D. on 03/28/2016 at 10:49 Assessment & Plan 74 year old female with hx of HTN, Alzheimer's dementia, hypothyroidism, hyperlipidemia, treated as sepsis due to recurrent cystitis presented with somnolence. Finally BP stabilizing and turning for RN today 03/29/2016. # IMPROVING Acute severe sepsis (fever, tachycardia, leukocytosis, altered level of consciousness, DELORES, elevated lactic acid) due to acute gram neg rods purulent UTI, present on admission. -- Resolved leukocytosis - Zosyn started in ED, switched to ceftriaxone -Proteus on urine culture - Post fluid resuscitation, decreased D5NS to 50 mL per hour - As above Urine cultures are back growing a Proteus mirabilis which is not sensitive to ampicillin but is sensitive to Rocephin. # IMPROVING Acute decreased level of consciousness likely 2ndry to underlying sepsis, improving - oximask, npo, decrease IVF 50cc/hr -Necessitating supplemental oxygen # IMPROVING DELORES --monitor Cr and UOP --vaughn had been placed -Kidney function is doing better today, continue to monitor, labs pending for today reordered for 3 more days -Continue with IV fluids # History of Alzheimer's Dementia. advanced. - resume home meds once mental status improve and able to tolerate PO # ? History of Hypothyroidism per prior notes - thyroid medication not seen on patient's list of meds - T4 to T 3 okay -Thyroid labs are pending still today # Hypertension. chronic. ongoing - Hold BP meds until more awake and acute sepsis resolve # Goals of care - admitting hospitalist spoke w/ brother/DPOA (Holland Kameron, ) . He verfied DNR/DNI/comfort care but wanted treatment of underlying infection. Should patient's clinical course deteriorate, he wants to be notified at which time he will consider possible hospice and comfort care only protocol. Palliative care to initiate service/conversation for goals of care on March 31 Expected length of hospital stay is greater than 2 midnights. Pain Evaluation: Adequate Pain Control GI Prophylaxis: Proton Pump Inhibitor VTE Prophylaxis: Sub-Q Heparin (Unfractionated) VTE Mechanical Devices: Intermittant Pneumatic CD Resuscitation Status: DNR/DNI:Do Not Resuscitate/Intubate Time spent 30 minutes spent with evaluation and management, including coronation care. Greater than 50% was spent [id number] Emil Murdock DO Mar 31, 2016 11:36
[2016-03-31 11:57] LABS: BASOPHILS % (AUTO) 0.2 % (0-3); EOSINOPHILS % (AUTO) 0.2 % (0-5); Mean Corpuscular Hemoglobin 30.3 pg (27.0-35.0); Mean Corpuscular Volume 92.6 fL (81-100); NEUTROPHILS % (AUTO) 63.5 % (40-74); Platelet Count 175 bil/L (150-400)
--- NOTE | 2016-03-31 12:56 | NUR ---
Behavior / skin care Pt frequently calls out; speech is most unintelligible. Pt was able to tell me her name this a.m. when asked. Pt cooperates with care but frequently raises her voice when moved. Pt allows staff to turn her from side to side, but quickly moves back to a supine position with her knees bent. Skin check this a.m. showed no redness to problem on her back or buttocks. Pt does have red rash in her perineal area; applied Calmoseptine ointment. Case catheter in place and draining terry urine. Care continues.
--- NOTE | 2016-03-31 15:56 | NUR ---
NUTRITION ASSESSMENT: ASSESS: 75 YO female admitted for sepsis, UTI and altered mental status. Pt has been NPO x 3 days. Palliative care following to help with goal of care regarding nutrition as pt has failed her ST eval. Pt remains confused per notes and has Alzheimer's dementia. PMHx: HTN, Alzheimer's dementia, hyperlipidemia. LABS: Reviewed. K+ 3.2, Glu 130, Ca 8.2, Alb 2.7, PAB 15. MEDS: Reviewed. GI: No BM reported at this time. SKIN: No PU per wound care note. CURRENT WT: 60.8 kg. Wt (01/01/2015): 72.6 kg. Significant wt loss of 16.3% since Dec 2014. Ht: 5 feet, 6 inches per previous admit. DIET: NPO x 3 days. EST. NEEDS: 1603-8922 kcals (30-35 kcals/kg BW), 75-90 g protein (1.2-1.5 g/kg BW) NUTRITION DIAGNOSIS: 1.) Inadequate oral intake related to decreased ability to consume sufficient energy as evidenced by current NPO x 3 day status and significant wt loss of 16.3%. NUTRITION INTERVENTION: 1.) Will continue to await plan of care decisions. MONITOR / EVAL: NPO status, POC, labs, nutritional status. Follow per high nutritional risk guidelines.
--- NOTE | 2016-03-31 16:31 | NUR ---
SW continued Discharge Planning: SW spoke to [facility] rep Christine who states that patient accepted back upon discharge. [facility] rep states that another bedside eval to take place upon discharge. Palliative care following for goals of care. [facility] rep states that pending further clinical eval, possible hospice referral to be initiated prior to arrival if needed and if family in agreement. SW to follow with palliative care and clinical course. Per report in rounds, patient failed swallow. SW to follow. PLAN: Return back to [facility] with possible hospice, pending clinical course Mihir ESCALERA
--- NOTE | 2016-03-31 17:51 | PCM.PALLBR ---
Palliative Care Recommendation 75 yr old woman with known advanced dementia, now admitted again with UTI/ AMS. She is not oriented, with word-salad verbiage. She is somewhat more awake with the antibiotic treatments. She does cry out at times and has a significantly pained expression/grimace despite answering 'no' to questions about discomfort. Summary of palliative recommendations: -Symptom management (Pain/other) Pain/Comfort: Dementia is likely interfering with the patient's ability to report pain/discomfort. Will continue to assess. AMS: Advanced dementia, not oriented at this time, though nurse reports she did state her name earlier. --Stage 7C + FAST scale -DPOA/Advanced Directives/POLST: --DNR/DNI per brother. Will meet with brother tomorrow to discuss issues regarding future care, possible hospice and POLST -Family/emotional support --FCTM scheduled for 10:45am on 04/01/16 -Spiritual support Patient Goals: 1.To be determined during meetings with family in days to come Additional Medical Diagnoses with primary management by Hospitalist team include : Problems: Resuscitation Status Resuscitation Status: DNR/DNI:Do Not Resuscitate/Intubate Total time 15 minutes; >50% face to face with patient and/or family, providing counselling regarding plans and recommendations, and in care coordination with his/her medical teams. Palliative Brief Note Date of Service Mar 31, 2016 . Patient seen and examined in room with resident Dr. Cervantes. She has verbal responses but these for the most part are incomprehensible. She has a very distressed look on her face, like fear more that pain. She states no to having pain, or to being bothered by anything but I get the sense that this response is rote and not ambulatory services representative of the truth due to her profound confusion. TC with brother Holland, who is grateful for the involvement of palliative care. His questions are answered about the care she is receiving and how she is doing today. He is unable to come to the hospital today but will plan to meet with PC in the morning at 10:45 am. Deena Velazco Mar 31, 2016 17:51
[2016-04-01] VITALS (7 sets, daily range): BP systolic 132–164; BP diastolic 81–88; PULSE 73–91; RESP 16–18; O2SAT 94–98
[2016-04-01] MEDS: Heparin 5,000 Unit/mL Inj SUBQ SCH ×2 (00:21→08:36)
[2016-04-01] MEDS: Dextrose 5% 0.45% NaCl 1,000 ML IV SCH (02:41)
--- NOTE | 2016-04-01 03:59 | NUR ---
Mentation/Time of assessment Patients assessment was performed at 2014. Patients did not make eye contact. Made mumbles sounds except she said in regards to a warm blanket" that feels wonderful" She did not answer any questions except that when asked if she was in pain, she said "no". Patient was turned q2 hours. No pain medication was administered. o2 sats 97% on oxymask 2l.
--- NOTE | 2016-04-01 05:35 | NUR ---
Cough Patient has coughed throughout shift. The cough sounds productive but the patient does not exhibit the ability to cough sputum up.
[2016-04-01 06:19] LABS: BASOPHILS % (AUTO) 0.5 % (0-3); EOSINOPHILS % (AUTO) 0.9 % (0-5); MONOCYTES % (AUTO) 10.6 % (4-12); Mean Corpuscular Hemoglobin 31.1 pg (27.0-35.0); NEUTROPHILS % (AUTO) 50.3 % (40-74); Platelet Count 184 bil/L (150-400)
[2016-04-01] MEDS: Pantoprazole 4 mg/mL 10 mL Inj IVPUSH SCH (07:32)
[2016-04-01] MEDS: Albuterol-Ipratropium 3 mL Inhalation Solution NEB SCH ×3 (08:11→20:30)
[2016-04-01] MEDS ORDERED: cefTRIAXone Inj 2,000 MG in Dextrose 5% Minibag Plus 50 ML IV SCH (08:30)
--- NOTE | 2016-04-01 10:01 | NUR ---
Influenza swab Nasal swab for influenza testing obtained at 1000 hrs and sent to lab. Pt tolerated swab with no complaint. Care continues. Addendum: 04/01/16 at 1139 by KENNY WARE RN Microbiology notified me at 1130 hrs that pt's swab was positive for influenza A. Hospitalist notified of test results. Isolation measures initiated for droplet and contact precautions.
--- NOTE | 2016-04-01 12:39 | NUR ---
Social Work Continued Discharge Planning: Palliative Care consulted with patient and family today and family in agreement to hospice plans. Patient was active with hospice services in past and family aware of hospice expectations. Patient currently a resident of [facility]. MIRANDA contacted [facility], and spoke to [facility] and advised them of recent positive influenza swab. Rep from [facility] to contact SW back regarding acceptance back status after discussion with clinical director. Palliative care to contact hospice for possible opening time. SW to follow. PLAN: Possible return back to [facility], pending director approval due to recent positive influenza swab. Hospice [facility] to be consulted for possible opening time. SW to follow. Mihir ESCALERA Addendum: 04/01/16 at 1617 by MIKKI URIARTE ADDENDUM: MIRANDA spoke to [facility], who states that patient set up for opening at [facility] tomorrow at 10am. MIRANDA spoke to [facility] Christine who states that patient accepted back under hospice care. Patient to be placed in private room due to recent positive flu. Christine at [facility] available to arrange transport tomorrow morning to ensure hospice meeting at 10am. consulted today to enter discharge orders for tomorrow early am discharge. Family updated. Mihir ESCALERA
[2016-04-01] MEDS ORDERED: Potassium Chloride Inj 30 MEQ in Dextrose 5% 500 ML IV ONE (14:30)
[2016-04-01] MEDS ORDERED: Albuterol 2.5 mg/3 mL Inhalation Solution NEB PRN (14:35)
--- NOTE | 2016-04-01 14:40 | PCM.PNMED ---
Subjective Date of Service Apr 01, 2016 Subjective Patient with increasing secretions and cough patient is weak enough that she cannot bring it up hence flu screen was checked and it was positive for influenza A today. Exam Vital Signs Vital Sign - Last Date Time Temp Pulse Resp B/P Pulse Ox O2 Delivery O2 Flow Rate FiO2 04/01/16 13:31 36.3 77 132/81 97 OxyMask 1.00 04/01/16 08:14 18 Intake and Output 03/31/16 03/31/16 04/01/16 Cumulative From/Thru 15:00 23:00 07:00 03/28/16 09:22 - 04/01/16 06:06 Intake Total 737 ml 649 ml 7751 ml Output Total 975 ml 900 ml 4275 ml Balance -238 ml -251 ml 3476 ml Intake Oral 0 ml 0 ml 0 ml IV Total 737 ml 649 ml 7751 ml Output Urine Total 975 ml 900 ml 4275 ml # Voids 2 # Bowel Movements 0 0 Exam Constitutional: Very frail appearing female who is very lethargic Head: Normocephalic atraumatic Chest: Diffuse rhonchi Cor: Regular rate and rhythm S1-S2 Abdomen soft nontender bowel sounds present Extremity: No pedal edema Neuro: She is lethargic but does arouse to voice and painful stimuli. Moves all extremities equally. Lab and Diagnostics Result Diagram: 04/01/1655404/01/16554 Microbiology RUN DATE: 03/30/[address] [facility] LAB LIVE PAGE 1 RUN TIME: 0736 Specimen Inquiry PHYSICIAN Name: ABHAY SCHWARZ Age/Sex: 75/F Attend Dr: Chris Hassan Acct: [id number] Unit: [id number] Status: ADM IN Location: [facility] [place] 1030-1 Re03/28/16 Disch: Specimen: [id number] Collected: 03/28/16 Status: OLMAN Req#: [id number] Received: 03/28/16 Source: URINE CC Sp Desc : PP Subm Dr: Brian Callejas MD Ordered: URINE CULT Procedure Result Verified Site Microbiology CRICKET CULT URINE Final 03/30/16 Organism 1 PROTEUS MIRABILIS U COLONY COUNT/QUANTITY >100,000 CFU/ml Organism 2 MIXED UROGENITAL JAVI U COLONY COUNT/QUANTITY >100,000 CFU/ml Mixed urogenital javi also PROTEUS MIRABILIS Cefazolin-predicts results for the oral agents, cefaclor,cefdinir, cefpodoximen, cefprozil, cefuroximne axetil, cephalexin and loracarbed when used for therapy of uncomplicated UTI's due to E. coli, K. pneumoniae, and Proteus mirabilis. Cefpodoxime, cefdinir and cefuroxime axetil may be tested individually because some isolates may be susceptible to these agents while testing resistant to cefazolin. (CLSI [id number] pg 53) 1. PROTEUS MIRABILIS M.I.C Interp --------- ------ * AMPICILLIN I * CEFAZOLIN (CEPHALOSPORIN) UTI 4 S * CEFEPIME <=1 S * CEFTRIAXONE <=1 S * CEFUROXIME SODIUM <=1 S * CIPROFLOXACIN <=0.25 S * ERTAPENEM <=0.5 S * GENTAMICIN <=1 S * LEVOFLOXACIN <=0.12 S * NITROFURANTOIN 128 R * TETRACYCLINE >=16 R * TOBRAMYCIN <=1 S * TRIMETHOPRIM/SULFAMETHOXAZOLE <=20 S X-Rays, CTs and MRIs Date of Service: 03/28/16 0933 PROCEDURE: X-RAY CHEST ONE VIEW, PORTABLE ([id number]) IMPRESSION: No acute cardiopulmonary findings. Dictated by: Erin Chao M.D. on 03/28/2016 at 10:49 Approved by: Erin Chao M.D. on 03/28/2016 at 10:49 Assessment & Plan 74 year old female with hx of HTN, Alzheimer's dementia, hypothyroidism, hyperlipidemia, treated as sepsis due to recurrent cystitis presented with somnolence. Finally BP stabilizing and turning for RN today 03/29/2016. # IMPROVING Acute severe sepsis (fever, tachycardia, leukocytosis, altered level of consciousness, DELORES, elevated lactic acid) due to acute gram neg rods purulent UTI, present on admission. -- Resolved leukocytosis - Zosyn started in ED, switched to ceftriaxone -Proteus on urine culture - Post fluid resuscitation, decreased D5NS to 50 mL per hour - As above Urine cultures are back growing a Proteus mirabilis which is not sensitive to ampicillin but is sensitive to Rocephin. # IMPROVING Acute decreased level of consciousness likely 2ndry to underlying sepsis, improving - oximask, npo, decrease IVF 50cc/hr -Necessitating supplemental oxygen # IMPROVING DELORES --monitor Cr and UOP --vaughn had been placed -Kidney function is doing better today, continue to monitor, labs pending for today reordered for 3 more days -Continue with IV fluids # Increasing cough and secretions, acute, worsening since admission Flu screen is positive for influenza A placed on droplet precautions I did order Tamiflu but doubt patient will be able to safely take anything oral Check portable chest x-ray to see if pneumonic infiltrates are present # History of Alzheimer's Dementia. advanced. - resume home meds once mental status improve and able to tolerate PO # ? History of Hypothyroidism per prior notes - thyroid medication not seen on patient's list of meds - T4 to T 3 okay -Thyroid labs are pending still today # Hypertension. chronic. ongoing - Hold BP meds until more awake and acute sepsis resolve # Goals of care - admitting hospitalist spoke w/ brother/DPOA (Holland Melo, ) . He verfied DNR/DNI/comfort care but wanted treatment of underlying infection. Should patient's clinical course deteriorate, he wants to be notified at which time he will consider possible hospice and comfort care only protocol. Palliative care to initiate service/conversation for goals of care on March 31. Expected length of hospital stay is greater than 2 midnights. GI Prophylaxis: Proton Pump Inhibitor VTE Prophylaxis: Sub-Q Heparin (Unfractionated) VTE Mechanical Devices: Intermittant Pneumatic CD Resuscitation Status: DNR/DNI:Do Not Resuscitate/Intubate Time spent 30 minutes Ramya Carr MD Apr 01, 2016 14:40
--- NOTE | 2016-04-01 14:53 | NUR ---
Palliative care note D/A: Case discussed in OPC rounds. Discussed possible need for stat flu test and pt has been found to be positive for the flu virus. Please note that pt brother Holland Melo can be reached on his phone at [phone]. (This worker having trouble getting this number to work this afternoon, although number has been used recently.) Holland spouse cell number is [phone]. This worker was able to contact Holland on his spouse's cell phone. Pt is from [facility]. Family is familiar with hospice from having had such services for other family members in the past. Pt has not used Hospice in the past. Discussed with Urvashi at [facility]. As this worker was not yet able to to discuss with johanna Holland- arranged for W info visit for 04/02/16 at 1000 in case johanna would like info visit. (He had indicated previously that he was not sure he needed one.) Mikaela ESCALERA dcp will contact [facility] to discuss when they might be able to accept pt back in light of positive flu virus. When this worker is able to reach Holland, possibility of info visit is offered and he accepts. He will meet [facility] rep (Peggy) outside of pt room at 1000 on 04/02/16. He also tells this worker that his family is friends with Juliette Andrade MD who has also provided details in regards to [facility] care. Case discussed with Deena PEARL as to timing of dc. She will discuss further with Dr. Carr. Have left message for Urvashi at [facility] as to when agency might be able to open pt. (During call on another pt this morning, next opening at that time was 04/04/16 at 1100.) Awaiting word from [facility] as to date/time of open. P: Palliative to follow. Pt able to return to [facility] on 04/02/16. [facility] to provide info visit on 04/02/16 at 1000. Awaiting recommendation from medical/palliative team as to if pt can dc with [facility] to open a few days later. Paola Min [facility] Addendum: 04/01/16 at 1550 by VIANEY MIN PC note amendment D/A: Phone call from hal Ogden who indicates that [facility] can take back pt on 04/02/16 and are aware of flu. This worker calls [facility] who has now had a cancellation and is able to open pt on 04/02/16 at 1000. Asked Urvashi to call Mikaela ESCALERA to discuss further. Discussed with Mikaela who will reach out to hospitalist . This worker sends text to Deena PEARL alerting her to this potential plan. Discussed with Urvashi from [facility] in regards to planned info visit for pt johanna on 04/02/16 at 1000. Decided to discuss with bro and indicate above plan and that he/spouse can meet pt at 1000 at [facility] and interact with [facility] while they open pt for services at 1000. Msg left for bro on spouse phone and later talk to him on his cell phone as is working at this time. Awaiting word back from medical/palliative providers as to dc plan for 04/02/16. P: Palliative care to follow. Paola Min [facility]
--- NOTE | 2016-04-01 15:02 | PCM.CONPAL ---
Date of Service Apr 01, 2016 Date of Hospital Admission: Mar 28, 2016 at 13:27 Date of Palliative Consult: Apr 01, 2016 Requesting Provider: Emil Murdock DO Reason Palliative Care Consult: Goals of Care Discussion, Hospice Referral & Discussion Reason for Consultation Goals of Care planning with DPOA Hospital Unit @time of consult: Orthopedic/Surgical Care Palliative Care Recommendation 75 yr old woman with known advanced dementia, now admitted again with UTI/ AMS and influenza. She is not oriented, with word-salad verbiage. She is somewhat more awake with the antibiotic treatments. She does cry out at times and has a significantly pained expression/grimace despite answering 'no' to questions about discomfort, though nurse reports she did state her name earlier. Summary of palliative recommendations: -Symptom management (Pain/other) Pain/Comfort: Dementia is likely interfering with the patient's ability to report pain/discomfort. Patient will be transitioned to comfort care measures and will likely be placed on low dose scheduled liquid morphine however Palliative team will continue to assess. AMS: Advanced dementia, not oriented at this time, though nurse reports she did state her name earlier. --Stage 7C on FAST scale with recent loss of ambulation and PT signing off given lack of ability to follow commands - Patient will likely remain on some low dose antipsychotics including Olanzapine, however palliative plan to simplify patient's medications with emphasis on comfort care once discussed with medical team. -DPOA/Advanced Directives/POLST: --DNR/DNI per brother. Family Care Team meeting on 04/01/2016 described in detail in conference section -Family Care Team Meeting held on 04/01/2016 at 10:45 - Family - Brother/DPOA Holland Melo and sister in law Villar - Palliative team - Deena PEARL and Steve Leung DO FAmily Conference: The discussion was started with obtaining the family's understanding of Augustina's current state of health. The brother Holland described the progression of Augustina's dementia stating that it started at around 65yo however there were tell-tell signs that she may have struggled with the onset of dementia prior. She purchased a house which she could not afford in [place] after living in an apartment without issue. At approximately 68yo Augustina was convinced to move into a facility [facility] that could better care for her the where she resided for 3- 4 years before the facility said her dementia had progressed to where she was difficult to handle with issues with hostility and agitation. At that point in time the patient was moved to [facility] where she has resided for the last 3 years. Holland described Augustina's baseline health as being in relative decline since she broke her left hip in December 2014. He states that she was able to regain the ability to walk and was ambulatory up to a few months ago however the hip fracture really started a precipitous decline in her dementia. At baseline just several weeks ago Augustina was oriented to person but less so daily. Holland goes on to state that growing up as children "Augustina hated my guts." She went on to say that during the process of naming Holland her DPOA, she stated that through her dementia she was "getting revenge" against Holland. Holland states that he feels a sense of responsibility to take care of Augustina and he stated that he has help Augustina since she showed up after their parent's both in [place] approximately 20 years ago. 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 Holland stated that his father had to bail Augustina out of financial issues after her divorce. Augustina was also a fairly introverted individual prior to her onset of dementia, and only had 1-2 friends during her years in [place] prior to her dementia. Holland also reports that Augustina had some underlying issues with fearfulness and paranoia that he noticed prior to her onset of dementia. He mentions that she was always worried that somebody was breaking into her home specifically. Holland reiterated that during their DPOA paperwork Augustina had mentioned that she wanted no heroic measures taken to keep her alive. At this point the Palliative team asked Holland and Aurea to fill out a new POLST for Augustina. Holland agreed that Augustina would be DNR/DNI and given her current stage of dementia that she would want to be comfort care only. When the topic of tube feeding was brought up Holland stated that he believes Augustina would describe that as a heroic measure and therefor no feeding tubes were selected, however he believes given that she is comfort care she should be allowed to eat even though it carries a risk of aspiration. Lastly Holland stated that she would not want any antibiotics that would prolong her life given its current state of quality. Lastly the topic of Hospice was brought up. Holland and Aurea were both familiar with Hospice from Aurea's mother being cared for 10 years prior. Neither felt that they needed an information visit but both agreed that if Augustina were accepted as a candidate they would like Hospice following along. -Spiritual support - not discussed at this time Patient Goals: 1. Comfort care measures Additional Medical Diagnoses with primary management by Hospitalist team include : End stage dementia UTI Influenza Problems: End of Life Preferences Comfort Care order set DNR/DNI No antibiotics No tube feedings but OK to recreationally feed orally if patient wants even given risk of aspiration Goals of Care 1. Comfort care measures Disposition Likely to be discharged back to [facility] with hospice following. [facility] is [facility] her back tomorrow however hospice will not be able to follow until likely later in the week. Resuscitation Status Resuscitation Status: DNR/DNI:Do Not Resuscitate/Intubate POLST Updates/Changes Previous POLST?: No POLST Last Review Date: Apr 01, 2016 Antibiotics: No Antibiotics Artificially Admin Nutrition: No Artifical Nutrition by Tube, Additional Orders (OK to feed recreationally even with risk of aspiration) POLST Discussed with: Health Care Agent (DPOAHC) POLST Review Outcome: New Form Completed . Advanced Care Planning Address: POLST, Comfort care Pain: Mild Symptom management: Anxiety, Agitation, Delirium Pt History History of Present Illness from the H&P of Chris Hassan MD "History obtained entirely per ED report and prior electronic notes given that patient is completely non-verbal and minimally responsive at this point: 74 year old female with hx of HTN, Alzheimer's dementia, hypothyroidism, hyperlipidemia, and recurrent cystitis presents today with report of altered mental status. Per ED report patient presented "via EMS from [facility] with decreased level of consciousness onset two days ago. Her caretakers also report congestion in her lungs. At baseline, the patient is awake and swears frequently. Per EMS her BP was 133/77 with a pulse of 97 and a blood sugar of 133. Her O2 sat was 85% at [facility] and 88% en route. She was given DuoNeb treatment by EMS. The patient is DNR, comfort measures only." In the ED patient's workup has been suggestive of acute sepsis due to UTI. She received a dose of IV Zosyn" Palliative Care : 75 yr old woman with known advanced dementia, now admitted again with UTI/ AMS and now confirmed positive Influenza. She is not oriented, with word-salad verbiage. She is somewhat more awake with the antibiotic treatments. She does cry out at times and has a significantly pained expression/ grimace despite answering 'no' to questions about discomfort. Patient seen and examined in room with resident Dr. Leung. She has verbal responses but these for the most part are incomprehensible. She has a very distressed look on her face, like fear more that pain. She states no to having pain, or to being bothered by anything but I get the sense that this response is rote and not telemarketing sales representative of the truth due to her profound confusion. TC with brother Holland/ELIOT, who is grateful for the involvement of palliative care. His questions are answered about the care she is receiving and how she is doing at this time. He is able to come to the hospital to meet with PC today at 10:45 am. Past Medical History Significant PMH Noted: Alzheimer's Dementia Anxiety Hypothyroidism (acquired) Recurrent Cystitis Hyperlipidemia Urinary incontinence Left hip fracture in December 2014 Social History Occupation: retired physical plant employee Social Support: Brother Holland Melo is the DPOA Living Situation: At [facility] ADLs ADL Patient Status: Current ADL Ambulation: Mainly Bed ADL Dressing: Total care ADL Feeding: Total care ADL Hygene/bathing: Total care ADL Transfers: Total care Allergy Allergies Reviewed: Yes Medications Current Medications: Current Medications Ceftriaxone Sodium/Dextrose 2000 mg/Premix 50 ml @ 100 mls/hr Q24 IV Last administered on 03/31/16 08:32; Admin Dose 100 MLS/HR; Start 03/30/16 at 14:00 ; Stop 03/31/16 at 14:47; Status DC Acetaminophen 1000 mg/Premix 100 ml @ 400 mls/hr Q6H PRN IV Last administered on 03/30/16 17:40; Admin Dose 400 MLS/HR; Start 03/30/16 at 14:50; Stop at 14:51; Status DC Dextrose/Sodium Chloride 1,000 ml @ 50 mls/hr Q20H IV Last administered on 04/01 02:41; Admin Dose 50 MLS/HR; Start 03/30/16 at 18:25 Ceftriaxone Sodium/Dextrose/ Water 50 ml @ 100 mls/hr Q24 IV Last administered on 04/01/16 08:35; Admin Dose 100 MLS/HR; Start 04/01/16 at 08:30 Scheduled Fluticasone Propionate (Fluticasone Propionate Nasal) 16 Gm [place].susp 2 SPRAY NS DAILY Lorazepam (Lorazepam) 1 Mg Tablet 1 MG PO BID Mirtazapine (Mirtazapine) 7.5 Mg Tablet 7.5 MG PO HS Olanzapine (Olanzapine) 5 Mg Tablet 5 MG PO BID Scheduled PRN Acetaminophen (Acetaminophen) 500 Mg Tablet 1,000 MG PO BID PRN PRN For Pain Bisacodyl (Dulcolax Rectal) 10 Mg Supp.rect 10 MG RC DAILY PRN PRN For Constipation Morphine Sulfate Oral Concentrate (Roxanol Oral Concentrate) 100 Mg/5 Ml (20 Mg/ Ml) Solution 5-10 MG SL/PO Q4H PRN PRN For Moderate Pain Miscellaneous Medications Magnesium Hydroxide (Milk of Magnesia) 400 Mg/5 Ml Oral.susp 400 MG PO Objective Findings Exam Vital Sign - Last Date Time Temp Pulse Resp B/P Pulse Ox O2 Delivery O2 Flow Rate FiO2 04/01/16 10:05 78 95 OxyMask 1.00 04/01/16 08:14 18 04/01/16 05:28 36.4 155/88 Intake and Output 03/31/16 03/31/16 04/01/16 Cumulative From/Thru 15:00 23:00 07:00 03/28/16 09:22 - 04/01/16 06:06 Intake Total 737 ml 649 ml 7751 ml Output Total 975 ml 900 ml 4275 ml Balance -238 ml -251 ml 3476 ml Intake Oral 0 ml 0 ml 0 ml IV Total 737 ml 649 ml 7751 ml Output Urine Total 975 ml 900 ml 4275 ml # Voids 2 # Bowel Movements 0 0 Objective 75yoF with PMH remarkable for advanced dementia lying quietly in bed until brief outbursts of word salad, in no acute distress otherwise General: Alert, Anxious, Agitated, Other (Not alert to self, place or time) HEENT: Atraumatic, PERRLA, Scleral Anicteric, Mucous Membr Moist/[place] Heart: Exam Unremarkable, Regular Rate/Rhythm, Normal S1, S2, No Murmurs/Rubs/ Gallops Lungs: Clear to Auscultation Abdomen: Benign, Bowel Tones x4, Soft, Non Tender Neuro: Arousable, Spontaneous Eye Opening, Speech (word salad, comprehensible words are brief 3-4 at a time) Extremities: Pulses Palpable x4, Warm Lab/Diagnostics Lab and Imaging results reviewed in detail in EMR. Time spent Total time 80 minutes; >50% face to face with patient and/or family, providing counselling regarding plans and recommendations, and in care coordination with his/her medical teams. I also spent an additional 45 minutes counseling for advanced care planning with the patient/the patients family/the surrogate decision maker. Attending Statement The patient was seen and examined together with Dr. Steve Leung on April 01, 2016 and I agree with the history, exam and plan as outlined in the note above. Deena Velazco Apr 01, 2016 10:32 STEVE LEUNG DO Apr 01, 2016 15:02 I also spent an additional 45 minutes counseling for advanced care planning with the patient/the patients family/the surrogate decision maker. Deena Velazco Apr 01, 2016 10:32 STEVE LEUNG DO Apr 01, 2016 15:02 Total time 80 minutes; >50% face to face with patient and/or family, providing counselling regarding plans and recommendations, and in care coordination with his/her medical teams. I also spent an additional 45 minutes counseling for advanced care planning with the patient/the patients family/the surrogate decision maker. Deena Velazco Apr 01, 2016 10:32 STEVE LEUNG DO Apr 01, 2016 15:02
[2016-04-01] MEDS ORDERED: Haloperidol 5 mg/mL Inj IVPUSH PRN (15:25)
[2016-04-01] MEDS ORDERED: OLANZapine Zydis ODT 5 mg Tablet PO SCH (15:25)
[2016-04-01] MEDS ORDERED: Atropine 1% 5 mL Ophthalmic Solution PO PRN (15:25)
--- NOTE | 2016-04-01 15:56 | PCM.DIMED ---
Discharge Instructions Date of Service Apr 01, 2016 Dates of Hospitalization Mar 28, 2016 at 13:27 Discharge Diagnosis Discharge Diagnosis Influenza A, sepsis secondary to urinary tract infection with acute kidney failure Diet No restrictions, Other (aspiration risk) Activity Other (as tolerated) Call your provider Other (hospice care) Ramya Carr MD Apr 01, 2016 15:56
[2016-04-01] MEDS ORDERED: MORP100S5 SL/PO (15:59)
--- NOTE | 2016-04-01 17:00 | NUR ---
Comfort care Pt now on comfort care. Palliative care following pt now. New orders acknowledged. Continuing frequent oral care, and repositioning for pt comfort.
[2016-04-01] MEDS: Morphine 20 mg/mL Oral Syringe SL/PO PRN (17:15)
[2016-04-01] MEDS: OLANZapine Zydis ODT 5 mg Tablet PO SCH (21:00)
[2016-04-01] MEDS ORDERED: Albuterol-Ipratropium 3 mL Inhalation Solution NEB PRN (21:32)
--- NOTE | 2016-04-02 04:39 | NUR ---
comfort care per report pallative care has asked nurses to use the PAINAD scale to rate patients pain. on the PAINAD scale pt has scored a 0 for pain all night long. her breathing does sound congested but she has been breathing even and unlabored all night. she opens her eyes during care but makes no sounds of distress and does not become rigid or attempt to pull away. she has appeared to be resting comfortably tho she does not respond to verbal cues or answer questions. turning and oral care has been done for comfort. care continues.
[2016-04-02] MEDS ORDERED: MIRT7.5T8 PO (07:10)
[2016-04-02] MEDS ORDERED: OLAN5TAB PO (07:10)
[2016-04-02] MEDS ORDERED: LORA1TAB PO (07:10)
[2016-04-02] MEDS ORDERED: ACET-171 PO (07:10)
[2016-04-02] MEDS ORDERED: BISA10SU61 RC (07:10)
--- NOTE | 2016-04-02 07:14 | PCM.DC.MED ---
Discharge Summary Date of Service Apr 02, 2016 Dates of Hospitalization Date of Hospital Admission Mar 28, 2016 at 13:27 Date of Discharge: Apr 02, 2016 Providers: Admitting Physician: Chris Hassan Primary Care Physician: Rodrigo Attending Physician: Chris Hassan Diagnosis at Time of Discharge Diagnosis at Time of Discharge Influenza A, sepsis secondary to urinary tract infection with acute kidney failure Consultations Palliative care Procedures XRay, CTs & MRIs Date of Service: 03/28/16 0933 PROCEDURE: X-RAY CHEST ONE VIEW, PORTABLE ([id number]) IMPRESSION: No acute cardiopulmonary findings. Dictated by: Erin Chao M.D. on 03/28/2016 at 10:49 Approved by: Erin Chao M.D. on 03/28/2016 at 10:49 Brief History from the H&P of Chris Hassan MD "History obtained entirely per ED report and prior electronic notes given that patient is completely non-verbal and minimally responsive at this point: 74 year old female with hx of HTN, Alzheimer's dementia, hypothyroidism, hyperlipidemia, and recurrent cystitis presents today with report of altered mental status. Per ED report patient presented "via EMS from [facility] with decreased level of consciousness onset two days ago. Her caretakers also report congestion in her lungs. At baseline, the patient is awake and swears frequently. Per EMS her BP was 133/77 with a pulse of 97 and a blood sugar of 133. Her O2 sat [facility] 85% at [facility] and 88% en route. She was given DuoNeb treatment by EMS. The patient is DNR, comfort measures only." In the ED patient's workup has been suggestive of acute sepsis due to UTI. She received a dose of IV Zosyn" Palliative Care : 75 yr old woman with known advanced dementia, now admitted again with UTI/ AMS and now confirmed positive Influenza. She is not oriented, with word-salad verbiage. She is somewhat more awake with the antibiotic treatments. She does cry out at times and has a significantly pained expression/ grimace despite answering 'no' to questions about discomfort. Patient seen and examined in room with resident Dr. Cervantes. She has verbal responses but these for the most part are incomprehensible. She has a very distressed look on her face, like fear more that pain. She states no to having pain, or to being bothered by anything but I get the sense that this response is rote and not investment representative of the truth due to her profound confusion. TC with brother Holland/ORENHERMILA, who is grateful for the involvement of palliative care. His questions are answered about the care she is receiving and how she is doing at this time. He is able to come to the hospital to meet with PC today at 10:45 am. Hospital Course 74 year old female with hx of HTN, Alzheimer's dementia, hypothyroidism, hyperlipidemia, treated as sepsis due to recurrent cystitis presented with somnolence. Finally BP stabilizing and turning for RN today 03/29/2016. # IMPROVING Acute severe sepsis (fever, tachycardia, leukocytosis, altered level of consciousness, DELORES, elevated lactic acid) due to acute gram neg rods purulent UTI, present on admission. -- Resolved leukocytosis - Zosyn started in ED, switched to ceftriaxone -Proteus on urine culture - Post fluid resuscitation, decreased D5NS to 50 mL per hour - As above Urine cultures are back growing a Proteus mirabilis which is not sensitive to ampicillin but is sensitive to Rocephin. # IMPROVING Acute decreased level of consciousness likely 2ndry to underlying sepsis, improving - oximask, npo, decrease IVF 50cc/hr -Necessitating supplemental oxygen # IMPROVING DELORES --monitor Cr and UOP --vaughn had been placed -Kidney function is doing better today, continue to monitor, labs pending for today reordered for 3 more days -Continue with IV fluids # Increasing cough and secretions, acute, worsening since admission Flu screen is positive for influenza A placed on droplet precautions I did order Tamiflu but doubt patient will be able to safely take anything oral Check portable chest x-ray to see if pneumonic infiltrates are present # History of Alzheimer's Dementia. advanced. - resume home meds once mental status improve and able to tolerate PO # ? History of Hypothyroidism per prior notes - thyroid medication not seen on patient's list of meds - T4 to T 3 okay -Thyroid labs are pending still today # Hypertension. chronic. ongoing - Hold BP meds until more awake and acute sepsis resolve # Goals of care - admitting hospitalist spoke w/ brother/DPHERMILA (Holland Melo, ) . He verfied DNR/DNI/comfort care but wanted treatment of underlying infection. Should patient's clinical course deteriorate, he wants to be notified at which time he will consider possible hospice and comfort care only protocol. Palliative care to initiate service/conversation for goals of care on March 31. Patient was seen by palliative care and recommendations were made for comfort care/palliative care only and patient will be [facility] to [facility] with hosp[facility] care. Expected length of hospital stay is greater than 2 midnights. Exam Vital Signs (Last) Date Time Temp Pulse Resp B/P Pulse Ox O2 Delivery O2 Flow Rate FiO2 04/01/16 21:45 36.9 90 16 164/88 98 Room Air 04/01/16 13:31 1.00 Test 03/28/16 09:45 03/28/16 11:13 03/28/16 22:45 03/29/16 06:53 Urine Color Dark yellow (YELLOW) Urine Appearance Turbid (CLEAR,HAZY) Urine pH 6.0 (5.0-8.0) Urine Specific [place] 1.030 (1.003-1.035) Urine Protein 100mg/dL (NEG,TRACE) Urine Glucose (UA) Negativemg/dL (NEGATIVE) Urine Ketones Tracemg/dL (NEGATIVE) Urine Occult Blood Large (NEGATIVE) Urine Nitrite Negative (NEGATIVE) Urine Bilirubin Negative (NEGATIVE) Urine Urobilinogen Normalmg/dL (NORMAL) Urine Leukocyte Esterase Small (NEGATIVE) Urine RBC 0-2/hpf (0-2) Urine WBC 11-50/hpf (0-5) Urine Epithelial Cells Occasional/hpf (NONE-MOD) Urine Crystals None seen (NONE SEEN) Urine Bacteria Many/hpf (NONE-FEW) Urine Hyaline Casts Occasional/lpf (NONE) Urine Granular Casts Occasional (NONE SEEN) Urine Waxy Casts None seen (NONE SEEN) Urine Red Blood Cell Casts None seen (NONE SEEN) Urine White Blood Cell Casts None seen (NONE SEEN) Urine Mucus None seen (None Seen) Urine Trichomonas None seen (NONE SEEN) Urine Yeast None (NONE SEEN) Urinalysis Comment None Urine Culture Reflexed Indicated Total Bilirubin 0.2mg/dL (0.0-1.2) Aspartate Amino Transf (AST/SGOT) 32U/L (0-50) Alanine Aminotransferase (ALT/SGPT) 22U/L (0-32) Alkaline Phosphatase 88U/L (25-165) Troponin T < 0.010ug/L (0.0-0.011) Total Protein 7.5g/dL (6.4-8.4) Lactic Acid Level 1.1mmol/L (0.4-2.0) Magnesium Level 2.3mg/dL (1.6-2.6) Albumin 2.7g/dL (3.4-5.0) Test 03/30/16 07:05 04/01/16 05:55 Free Thyroxine Index 1.7 (1.2-4.9) Thyroxine (T4) 5.7ug/dL (4.5-12.0) Triiodothyronine (T3) Uptake 30% (24-39) White Blood Count 5.7th/mm3 (3.8-10.1) Red Blood Count 4.11mil/mm3 (3.90-5.20) Hemoglobin 12.8g/dL (12.0-15.6) Hematocrit 37.4% (35.0-46.0) Mean Corpuscular Volume 91.0fL (81-100) Mean Corpuscular Hemoglobin 31.1pg (27.0-35.0) Mean Corpuscular Hemoglobin Concent 34.2% (32.0-37.0) Red Cell Distribution Width 12.4% (12.3-15.4) Platelet Count 184bil/L (150-400) Neutrophils (%) (Auto) 50.3% (40-74) Lymphocytes (%) (Auto) 37.3% (14-46) Monocytes (%) (Auto) 10.6% (4-12) Eosinophils (%) (Auto) 0.9% (0-5) Basophils (%) (Auto) 0.5% (0-3) Sodium Level 140mEq/L (134-144) Potassium Level 3.1mEq/L (3.5-5.2) Chloride Level 101mEq/L (97-108) Carbon Dioxide Level 25mmol/L (18-29) Blood Urea Nitrogen 8mg/dL (8-27) Creatinine 0.71mg/dL (0.57-1.00) Estimat Glomerular Filtration Rate 115mL/min (>59) Glucose Level 124mg/dL (60-99) Calcium Level 8.6mg/dL (8.5-10.1) Prealbumin 18mg/dL (20-40) Microbiology Results RUN DATE: 03/30/16 [facility] LIVE PAGE 1 RUN TIME: 735 Specimen Inquiry PHYSICIAN Name: CHONGABHAY A Age/Sex: 75/F Attend Dr: Chris Hassan Acct: [id number] Unit: [id number] Status: ADM IN [place] [facility] [place] 1030-1 Re03/28/16 Disch: Specimen: [id number] Collected: 03/28/16 Status: COMP Req#: [id number] Received: 03/28/16 Source: URINE CC Sp Desc : ALEKSEY Lipscomb Dr: Brian Callejas MD Ordered: URINE CULT Procedure Result Verified Site Microbiology CRICKET CULT URINE Final 03/30/16-735 Organism 1 PROTEUS MIRABILIS U COLONY COUNT/QUANTITY >100,000 CFU/ml Organism 2 MIXED UROGENITAL JAVI U COLONY COUNT/QUANTITY >100,000 CFU/ml Mixed urogenital javi also PROTEUS MIRABILIS Cefazolin-predicts results for the oral agents, cefaclor,cefdinir, cefpodoximen, cefprozil, cefuroximne axetil, cephalexin and loracarbed when used for therapy of uncomplicated UTI's due to E. coli, K. pneumoniae, and Proteus mirabilis. Cefpodoxime, cefdinir and cefuroxime axetil may be tested individually because some isolates may be susceptible to these agents while testing resistant to cefazolin. (CLSI O183-D77 pg 53) 1. PROTEUS MIRABILIS M.I.C Interp --------- ------ * AMPICILLIN I * CEFAZOLIN (CEPHALOSPORIN) UTI 4 S * CEFEPIME <=1 S * CEFTRIAXONE <=1 S * CEFUROXIME SODIUM <=1 S * CIPROFLOXACIN <=0.25 S * ERTAPENEM <=0.5 S * GENTAMICIN <=1 S * LEVOFLOXACIN <=0.12 S * NITROFURANTOIN 128 R * TETRACYCLINE >=16 R * TOBRAMYCIN <=1 S * TRIMETHOPRIM/SULFAMETHOXAZOLE <=20 S Discharge Medications Discharge Medications Fluticasone Propionate (Fluticasone Propionate Nasal) 16 Gm [place].susp 2 SPRAY NS DAILY (Reported) Lorazepam (Lorazepam) 1 Mg Tablet 1 MG PO BID Prescribed by: RAMYA CARR MD Mirtazapine (Mirtazapine) 7.5 Mg Tablet 7.5 MG PO HS Prescribed by: RAMYA CARR MD Olanzapine (Olanzapine) 5 Mg Tablet 5 MG PO BID Prescribed by: RAMYA CARR MD As needed Acetaminophen (Acetaminophen) 500 Mg Tablet 1,000 MG PO BID PRN PRN For Pain Prescribed by: RAMYA CARR MD Bisacodyl (Dulcolax Rectal) 10 Mg Supp.rect 10 MG RC DAILY PRN PRN For Constipation Prescribed by: RAMYA CARR MD Morphine Sulfate Oral Concentrate (Roxanol Oral Concentrate) 100 Mg/5 Ml (20 Mg/ Ml) Solution 5-10 MG SL/PO Q4H PRN PRN For Moderate Pain Prescribed by: RAMYA CARR MD Miscellaneous Medications Magnesium Hydroxide (Milk of Magnesia) 400 Mg/5 Ml Oral.susp 400 MG PO (Reported ) Followup Plan Discharge Diet: No restrictions, Other (aspiration risk) Discharge Activity: Other (as tolerated) Ramya Carr MD Apr 02, 2016 07:14
--- NOTE | 2016-04-02 08:39 | NUR ---
Comfort care PAINAD scale used, pain treated with Roxanol to keep comfortable. Pt has decreased verbal and physical responsiveness; poor trunk strength, unable to sit at EOB or assist with position changes.
[2016-04-02] MEDS: OLANZapine Zydis ODT 5 mg Tablet PO SCH (08:55)
[2016-04-02] MEDS: Morphine 20 mg/mL Oral Syringe SL/PO PRN (08:56)
--- NOTE | 2016-04-02 08:56 | NUR ---
Social Work Continued Discharge Planning: Order for discharge acknowledged. Plan is transfer back to [facility] today with hospice to open today at [facility] at 10am. MIRANDA contacted [facility], [phone] and spoke to rep [place] who was aware. SW faxed discharge orders to facility [phone]. [facility] , [phone] who was made aware of discharge today. UR specialist rep to arrange transport for pickling operator at 9:15am via [facility]. MIRANDA contacted patient family who was made aware of transfer. SW to follow. PLAN: Return back to [facility] under hospice of the care. Mihir ESCALERA
--- NOTE | 2016-04-02 11:04 | NUR ---
Discharge Pt DC to [facility] via BLS at 0935. Report given to EMS. Discharge packet created and sent with pt to give to hospice accepting pt at 1000. Medicated for pain with 5mg Roxanol prior to transport, skin care/oral care provided and brief changed with calmoseptine applied to L groin area.
--- NOTE | 2016-04-02 13:45 | PCM.PALLBR ---
Palliative Care Recommendation 75 yr old woman with known advanced dementia, now admitted again with UTI/ AMS and influenza. Palliative medicine had been consulted to assist with determination of goals of care. Patient is transitioning to comfort care with supportive hospice at her adult care facility. Summary of palliative recommendations: -Symptom management (Pain/other) Pain/Comfort: Patient transitioned to comfort care measures AMS: Advanced dementia, not oriented at this time, though nurse reports she did state her name earlier. --Stage 7C on FAST scale with recent loss of ambulation and PT signing off given lack of ability to follow commands - Patient will remain on some low dose Olanzapine with other medications for comfort/support per hospitalist -DPOA/Advanced Directives/POLST: --DNR/DNI per brother. Family Care Team meeting on 04/01/2016 described in detail in conference section -Family Care Team Meeting held on 04/01/2016 at 10:45- see chart note for details -Spiritual support - not discussed at this time Patient Goals: 1. Comfort care measures/end-of-life care Additional Medical Diagnoses with primary management by Hospitalist team include : End stage dementia UTI Influenza Problems: End of Life Preferences Comfort Care order set DNR/DNI No antibiotics No tube feedings but OK to recreationally feed orally if patient wants even given risk of aspiration Goals of Care 1. Comfort care measures Disposition Discharged back to [facility] with hospice following. Resuscitation Status Resuscitation Status: DNR/DNI:Do Not Resuscitate/Intubate POLST Updates/Changes Previous POLST?: No POLST Last Review Date: Apr 01, 2016 Antibiotics: No Antibiotics Artificially Admin Nutrition: No Artifical Nutrition by Tube, Additional Orders (OK to feed recreationally even with risk of aspiration) POLST Discussed with: Health Care Agent (DPOAHC) POLST Review Outcome: New Form Completed . Advanced Care Planning Address: Comfort care Pain: None Total time 25 minutes; >50% face to face with patient, providing counselling regarding plans and recommendations, and in care coordination with her medical teams. Palliative Brief Note Date of Service Apr 02, 2016 . Returned to visit patient. Prior to visiting, reviewed updated records in the EMR in detail. Spoke with her bedside nurse. On my arrival, she is sleeping soundly. Appear to be in no distress. On exam, vitals noted. Skin warm and dry. Head and neck exam without acute findings. Lungs clear anteriorly, heart sounds regular, abdomen soft without tenderness. Emil Valles MD Apr 02, 2016 13:45
== END 2016-04-02 09:30 | DRG 871 ==
LOC: SED 09:22 → OSC 13:27
PROVIDERS: ADMIT Internal Medicine; ATTEND Internal Medicine
DX: A41.9 Sepsis, unspecified organism (principal); G93.41 Metabolic encephalopathy; N39.0 Urinary tract infection, site not specified; E87.2 Acidosis; N17.9 Acute kidney failure, unspecified; R65.20 Severe sepsis without septic shock; J10.89 Influenza due to other identified influenza virus with other manifestations; Z66 Do not resuscitate; E03.9 Hypothyroidism, unspecified; Z51.5 Encounter for palliative care